=== PATIENT | female | born 1965 | race Two or more races ===

== ENCOUNTER 2025-03-08 17:04 | Inpatient (IN) | payer MEDICAID, OTHER ==
[~2025-03-08] VITALS: Ht 160 cm; Wt 62.8 kg
--- NOTE | 2025-03-08 17:30 | ED.PDOC ---
History of Present Illness HPI Comments This is a 59 years old female without any significant past medical history presented to the ED with a chief complaint of epigastric pain, nausea and constipation since 5 days prior to this admission. The patient states that epigastric pain, which is sharp colicky pain, 8/10, without any aggravating and relieving factors and associated with nausea and constipation. The patient 1st went to the [facility] for epigastric pain, did workup for abdominal pain and discharged with antibiotic for possible stomach infection. The patient mentioned that her pain never goes away getting worse that prompted this visit. She denies fever, chills, shortness of breath, vomiting, diarrhea, dysuria, hematuria or any blood in the stool. Chief Complaint: Abdominal Pain Time Seen by MD: 17:07 Allergies: Coded Allergies: Morphine (Verified Allergy, Unknown, 03/08/25) Information Source: Patient Mode of Arrival: Ambulatory Timing: Days Duration: Since onset Prehospital treatment: None Past Medical History PAST MEDICAL HISTORY: Denies Surgical History: Denies all surgeries COMPONENT LAB TECH History: Denies all COMPONENT LAB TECH Hx Family History Family History: Reviewed,noncontributory to illness Social History Smoker: Non-Smoker Alcohol: Denies ETOH Use Drugs: Denies Drug Use Lives In: Home Constitutional: reports: chills; denies: diaphoresis, fatigue, fever, malaise, sweats, weakness, others EENTM: denies: blurred vision, double vision, ear bleeding, ear discharge, ear drainage, ear pain, ear ringing, eye pain, eye redness, hearing loss, mouth pain, mouth swelling, nasal discharge, nose bleeding, nose congestion, nose pain, photophobia, tearing, throat pain, throat swelling, voice changes, others Respiratory: denies: cough, hemoptysis, orthopnea, SOB at rest, shortness of breath, SOB with excertion, stridor, wheezing, others Cardiovascular: denies: chest pain, dizzy spells, diaphoresis, Dyspnea on exertion, edema, irregular heart beat, left arm pain, lightheadedness, palpitations, PND, syncope, others Gastrointestinal: reports: abdominal pain, constipated, nausea; denies: abdomen distended, blood streaked bowels, diarrhea, dysphagia, difficulty swallowing, hematemesis, melena, poor appetite, poor fluid intake, rectal bleeding, rectal pain, vomiting, others Genitourinary: denies: abnormal vagina bleeding, burning, dyspareunia, dysuria, flank pain, frequency, hematuria, incontinence, pain, , vagina discharge, urgency, others Neurological: denies: dizziness, fainting, headache, left sided numbness, left sided weakness, numbness, paresthesia, pre-existing deficit, right sided numbness, right sided weakness, seizure, speech problems, tingling, tremors, weakness, others Musculoskeletal: denies: back pain, gout, joint pain, joint swelling, muscle pain, muscle stiffness, neck pain, others Integumetry: denies: bruises, change in color, change in hair/nails, dryness, laceration, lesions, lumps, rash, wounds, others Allergic/Immunocompromised: denies: Difficulty Healing, Frequent Infections, Hives, Itching, others Hematologic/Lymphatic: denies: anemia, blood clots, easy bleeding, easy bruising, swollen glands, others Endocrine: denies: excessive hunger, excessive sweating, excessive thirst, excessive urination, flushing, intolerance to cold, intolerance to heat, unexplained weight gain, unexplained weight loss, others Psychiatric: denies: anxiety, bipolar disorder, depression, hopeless, panic disorder, schizophrenia, sleepless, suicidal, others Physical Exam General Appearance: Mild Distress HEENT: Normal ENT Inspection, Pharynx Normal, TMs Normal Neck: Full Range of Motion, Non-Tender, Normal, Normal Inspection Respiratory: Chest Non-Tender, Lungs Clear, No Accessory Muscle Use, No Respiratory Distress, Normal Breath Sounds Cardiovascular: No Edema, No JVD, No Murmur, No Gallop, Normal Peripheral Pulses, Regular Rate/Rhythm Breast Exam: Deferred Gastrointestinal: Epigastric, No Organomegaly, No Pulsatile Mass, Normal Bowel Sounds, Tenderness Genitalia: Deferred Pelvic: Deferred Rectal: Deferred Extremities: No calf tenderness, Normal capillary refill, Normal inspection, Normal range of motion, Non-tender, No pedal edema Neurologic: buncher operator II-XII nml as Tested, No Motor Deficits, No Sensory Deficits Cerebellar Function: NOT DONE Reflexes: NOT DONE Skin: NOT DONE Peripheral Pulses: 2+ carotid (R), 2+ carotid (L), 2+ femoral (R), 2+ femoral (L), 2+ dorsalis pedis (R), 2+ dorsalis pedis (L), 2+ Radial (R), 2+ Radial (L), 2+ Brachial (R), 2+ Brachial (L) Lymphatic: NOT DONE Was a procedure done? Was a procedure done?: No Differential Dx Considerations may include: Acute cholecystitis, cholelithiasis, biliary colic, pancreatitis, gastritis, PUD, constipation, colitis, diverticulitis, enteritis X-Ray, Labs, Meds, VS Vital Signs Date Time Temp Pulse Resp B/P (MAP) Pulse Ox O2 Delivery O2 Flow Rate FiO2 03/08/25 17:06 98.0 88 16 152/80 97 98.0 Lab Test 03/08/25 18:02 Range/Units White Blood Count 8.7 4.4-10.8 10^3/uL Red Blood Count 5.08 4.0-5.20 10^6/uL Hemoglobin 14.5 12.2-16.2 g/dL Hematocrit 44.2 36.0-46.0 % Mean Corpuscular Volume 87.0 80.0-100.0 fL Mean Corpuscular Hemoglobin 28.5 28.0-32.0 pg Mean Corpuscular Hemoglobin Concent 32.7 32.0-36.0 g/dL Red Cell Distribution Width 13.4 11.8-14.3 % Platelet Count 332 140-450 10^3/uL Mean Platelet Volume 8.0 6.9-10.8 fL Neutrophils (%) (Auto) 75.0 37.0-80.0 % Lymphocytes (%) (Auto) 19.4 10.0-50.0 % Monocytes (%) (Auto) 4.9 0.0-12.0 % Eosinophils (%) (Auto) 0.4 0.0-7.0 % Basophils (%) (Auto) 0.3 0.0-2.0 % Neutrophils # (Auto) 6.5 1.6-8.6 10 ^3/uL Lymphocytes # (Auto) 1.7 0.4-5.4 10 ^3/uL Monocytes # (Auto) 0.4 0-1.3 10 ^3/uL Eosinophils # (Auto) 0 0-0.8 10 ^3/uL Basophils # (Auto) 0 0-0.2 10 ^3/uL Nucleated Red Blood Cells 0.1 % Sodium Level 143 136-145 mmol/L Potassium Level 3.5 3.5-5.1 mmol/L Chloride Level 108 H 98-107 mmol/L Carbon Dioxide Level 24 20-31 mmol/L Anion Gap 11 5-15 Blood Urea Nitrogen 8 L 9-23 mg/dL Creatinine 0.92 0.550-1.02 mg/dL Glomerular Filtration Rate Calc 72 >90 mL/min BUN/Creatinine Ratio 8.7 L 10.0-20.0 Serum Glucose 130 H 74-106 mg/dL Calcium Level 9.6 8.7-10.4 mg/dL Total Bilirubin 1.7 H 0.2-1.0 mg/dL Aspartate Amino Transferase (AST) 139 H 13-40 U/L Alanine Aminotransferase (ALT) 129 H 7-40 U/L Alkaline Phosphatase 218 H 46-116 U/L Total Protein 8.2 5.7-8.2 g/dL Albumin 5.0 H 3.2-4.8 g/dL Lipase 76 H 12-53 U/L X-Ray, Labs, Meds, VS Comment ORDERING PHYSICIAN: CHAUNCEY KAUR RESIDENT PROCEDURE(s): ABDL - ABDOMEN LIMITED REASON: Epigastric pain ORDER NUMBER(s): [id number], ACCESSION NUMBER(s): [id number] CLINICAL HISTORY: Epigastric pain TECHNIQUE: Transabdominal sonogram was performed of the right upper quadrant. COMPARISON: None FINDINGS: The liver is increased in echogenicity. There is no focal parenchymal abnormality. No intrahepatic biliary ductal dilatation is present. The liver measures 17.1 cm. The gallbladder contains trace sludge with no evidence for stones or wall thickening. The common bile duct is normal in caliber, measuring 5.8 mm. The visualized pancreas is grossly unremarkable. The right kidney is normal in echogenicity and measures 10.3 cm in length. There is no evidence for hydronephrosis or calculi. IMPRESSION: DIFFUSE HEPATIC STEATOSIS ORDERING PHYSICIAN: CHAUNCEY KAUR PROCEDURE(s): ABPL - CT AB PEL WO CON-NO ORAL OR IV REASON: Epigastric pain ORDER NUMBER(s): [id number], ACCESSION NUMBER(s): [id number] Exam: CT CT AB PEL WO CON-NO ORAL OR IV History: Epigastric pain Comparison Study: None TECHNIQUE: Multidetector CT of the abdomen was performed from lung bases to pubic symphysis. Imaging was performed without IV contrast. Axial, coronal and sagittal multiplanar reformats were obtained from the axial data set by the technologist. Radiation Dose Information: CT Dose: CTDI volume is 6.76 mGy. Dose-length product is 347.03 mGy*cm FINDINGS: Evaluation of solid organs is limited due to lack of intravenous contrast use. Findings: Lung Bases: No acute or significant lung base finding. Normal heart size. No pleural or pericardial effusion. Liver: The liver is normal in size. No focal lesions. Gallbladder and Biliary Tree: Unremarkable Spleen: Unremarkable Pancreas: The pancreas is grossly normal in appearance. Adrenal Glands: Unremarkable Kidneys: Kidneys are grossly normal without calculi or hydronephrosis. Bladder: Grossly unremarkable for degree of distention. Bowel: The stomach is grossly normal in appearance. Small bowel and colon are normal in caliber and distribution. The appendix is not visualized; however, no secondary findings of acute appendicitis identified. Ascites: Absent Lymphadenopathy: No mesenteric, retroperitoneal or periportal lymphadenopathy. Abdominal Wall and Mesentery: 2.2 cm fat containing umbilical hernia. Vasculature: The visualized abdominal aorta is normal in size and caliber. Evaluation of abdominal and pelvic vessels is limited due to lack of intravenous contrast. Pelvic Organs: Unremarkable Musculoskeletal: No aggressive focal bony lesions, acute fractures or di slocation. Soft tissues: Unremarkable IMPRESSION: 1. No calcified gallstones 2. No free air or free fluid. 3. No CT findings to suggest bowel obstruction. Moderate degree of stool burden throughout the colon. 4. 2.2 cm fat containing umbilical hernia. 5. No nephrolithiasis or hydronephrosis Images Reviewed?: Images reviewed and evaluated by me Time of 1ST Reevaluation: 20:03 Reevaluation 1ST: Unchanged Patient Education/Counseling: Diagnosis, Treatment Family Education/Counseling: Diagnosis, Treatment Comments This is a 59-year-old female presented to the ED with a chief complaint of severe epigastric pain, nausea, and constipation for last 1 week prior to this visit. Initial physical exam showed epigastric tenderness CBC was unremarkable CMP demonstrated elevated lipase, bilirubin and liver enzymes Right upper quadrant ultrasound was negative for gallstone and showed diffuse hepatic steatosis CT abdomen pelvis without IV contrast was negative for acute intra-abdominal pathology The patient will be admitted for further evaluation and management of possible pancreatitis and transaminitis. SEPSIS Sepsis Screen Date sepsis recognized/suspect: Mar 08, 2025 Time Sepsis recognized/suspect: 1705 Recent Procedure: No On Antibiotic Therapy: No Respiratory Rate >20: No Heart Rate >90: No Temp<36 C (96.8 F) or >38.3 C: No SBP <90 or MAP <65 mmHG: No New Acute Mental Status Change: No Is the patient on CPAP, BIPAP,: No Physician Orders Urinalysis (03/08/25 17:28) Ct Ab Pel Wo Con-No Oral Or Iv (03/08/25 17:28) Abdomen Limited (03/08/25 19:04) Vital Signs Date Time Temp Pulse Resp B/P (MAP) Pulse Ox O2 Delivery O2 Flow Rate FiO2 03/08/25 17:06 98.0 88 16 152/80 97 98.0 Laboratory Tests Test 03/08/25 18:02 White Blood Count 8.7 10^3/uL (4.4-10.8) Departure 1 Departure Time of Disposition: 20:06 Impression: Primary Impression: Acute pancreatitis Additional Impression: Transaminitis Disposition: ADMITTED INPATIENT Admit to: Med Surg Condition: Guarded Critical Care Note Critical Care Time?: No Stability Stability form required: CHAUNCEY Ha RESIDENT Mar 08, 2025 17:30
--- NOTE | 2025-03-08 18:16 | DVH ---
Exam: CT CT AB PEL WO CON-NO ORAL OR IV History: Epigastric pain Comparison Study: None TECHNIQUE: Multidetector CT of the abdomen was performed from lung bases to pubic symphysis. Imaging was performed without IV contrast. Axial, coronal and sagittal multiplanar reformats were obtained fr om the axial data set by the technologist. Radiation Dose Information: CT Dose: CTDI volume is 6.76 mGy. Dose-length product is 347.03 mGy*cm FINDINGS: Evaluation of solid organs is limited due to lack of intravenous contrast use. Findings: Lung Bases: No acute or significant lung base finding. Normal heart size. No pleural or pericardial effusion. Liver: The liver is normal in size. No focal lesions. Gallbladder and Biliary Tree: Unremarkable Spleen: Unremarkable Pancreas: The pancreas is grossly normal in appearance. Adrenal Glands: Unremarkable Kidneys: Kidneys are grossly normal without calculi or hydronephrosis. Bladder: Grossly unremarkable for degree of distention. Bowel: The stomach is grossly normal in appearance. Small bowel and colon are normal in caliber and d istribution. The appendix is not visualized; however, no secondary findings of acute appendicitis id entified. Ascites: Absent Lymphadenopathy: No mesenteric, retroperitoneal or periportal lymphadenopathy. Abdominal Wall and Mesentery: 2.2 cm fat containing umbilical hernia. Vasculature: The visualized abdominal aorta is normal in size and caliber. Evaluation of abdominal a nd pelvic vessels is limited due to lack of intravenous contrast. Pelvic Organs: Unremarkable Musculoskeletal: No aggressive focal bony lesions, acute fractures or dislocation. Soft tissues: Unremarkable IMPRESSION: 1. No calcified gallstones 2. No free air or free fluid. 3. No CT findings to suggest bowel obstruction. Moderate degree of stool burden throughout the colon. 4. 2.2 cm fat containing umbilical hernia. 5. No nephrolithiasis or hydronephrosis 6. Radiation optimization: All CT scans at this facility use at least one of these dose optimization techniques: automated exposure control mA and/or kV adjustment per patient size (includes targeted e xams where dose is matched to clinical indication) or iterative reconstruction.
[2025-03-08 18:17] LABS: Hematocrit 44.2 % (36.0-46.0); Hemoglobin 14.5 g/dL (12.2-16.2); Mean Corpuscular Hemoglobin 28.5 pg (28.0-32.0); Mean Corpuscular Volume 87.0 fL (80.0-100.0); Nucleated Red Blood Cells % 0.1 %
[2025-03-08 18:29] LABS: Anion Gap 11 (5-15); BUN/Creatinine Ratio 8.7 (10.0-20.0); Calcium 9.6 mg/dL (8.7-10.4); Carbon Dioxide 24 mmol/L (20-31); Sodium 143 mmol/L (136-145); Total Protein 8.2 g/dL (5.7-8.2)
[2025-03-08 18:57] LABS: Alanine Aminotransferase 129 U/L (7-40); Albumin 5.0 g/dL (3.2-4.8); Alkaline Phosphatase 218 U/L (46-116); Bilirubin, Total 1.7 mg/dL (0.2-1.0); Blood Urea Nitrogen 8 mg/dL (9-23); Chloride 108 mmol/L (98-107); Glucose 130 mg/dL (74-106); Lipase 76 U/L (12-53); Potassium 3.5 mmol/L (3.5-5.1)
--- NOTE | 2025-03-08 19:47 | DVH ---
CLINICAL HISTORY: Epigastric pain TECHNIQUE: Transabdominal sonogram was performed of the right upper quadrant. COMPARISON: None FINDINGS: The liver is increased in echogenicity. There is no focal parenchymal abnormality. No intrahepatic b iliary ductal dilatation is present. The liver measures 17.1 cm. The gallbladder contains trace sludge with no evidence for stones or wall thickening. The common bile duct is normal in caliber, measuring 5.8 mm. The visualized pancreas is grossly unremarkable. The right kidney is normal in echogenicity and measures 10.3 cm in length. There is no evidence for h ydronephrosis or calculi. IMPRESSION: DIFFUSE HEPATIC STEATOSIS
[2025-03-08] MEDS ORDERED: LACTATED RINGER'S 1,000 ML IV ONE (20:15)
[2025-03-08] MEDS: KETOROLAC TROMETH 30 MG/ML 1ML VIAL IV ONE (22:38)
[2025-03-08] MEDS: SODIUM CHLORIDE 0.9% 1,000 ML IV ONE (22:38)
[2025-03-08 23:01] LABS: Urine Protein, UAD Negative (Negative)
[2025-03-09] MEDS ORDERED: KETOROLAC TROMETH 30 MG/ML 1ML VIAL IV PRN (01:30)
--- NOTE | 2025-03-09 01:59 | DVHHP2 ---
History of Present Illness History of Present Illness This is a 59-year-old female with no significant past medical history except depression who presents to the Emergency Department with a 5-day history of epigastric pain, nausea, and constipation. Patient also stated for episode of vomiting, not mixed with blood. The patient describes the pain as sharp and colicky, rated 8/10 in intensity, without identifiable aggravating or relieving factors. Associated symptoms include persistent nausea and constipation. Patient having similar episode before. She visited at [facility], where she underwent an abdominal workup and was discharged with antibiotics for a presumed stomach infection. However, her symptoms have progressively worsened, prompting this ED visit. Not taking any [id number] drug like Tylenol, any herbal product. She denies fever, chills, shortness of breath, vomiting, diarrhea, dysuria, hematuria, or hematochezia. PAST MEDICAL HISTORY: Depression Surgical History: Denies all surgeries Family History: noncontributory to illness Smoker: Non-Smoker Alcohol: Denies ETOH Use Drugs: Denies Drug Use Lives In: Home PCP: Not selected Allergy: Morphine Review of Systems Constitutional: Yes: Malaise; No: Fever, Chills, Sweats, Weakness, Other Eyes: No: Pain, Vision change, Conjunctivae inflammation, Eyelid inflammation, Other, Redness ENT: No: Ear pain, Ear discharge, Nose pain, Nose discharge, Nose congestion, Mouth pain, Mouth swelling, Throat pain, Throat swelling, Other Respiratory: No: Cough, Dry, Shortness of breath, SOB with excertion, Wheezing, Hemoptysis, Pleuritic Pain, Sputum, Wheezing, Other Cardiovascular: No: Chest Pain, Palpitations, Orthopnea, Paroxysmal Noc. Dyspnea, Edema, Lt Headedness, Other Gastrointestinal: Nausea, Vomiting, Abdominal Pain, Constipation; No: Diarrhea, Melena, Hematochezia, Other Genitourinary: No Dysuria, No Frequency, No Incontinence, No Hematuria, No Rete ntion, No Other Musculoskeletal: No: other, neck pain, shoulder pain, arm pain, back pain, hand pain, leg pain, foot pain Skin: No: Rash, Lesions, Jaundice, Bruising, Other Neurological: No: Weakness, Numbness, Incoordination, Change in speech, Confusion, Seizures, Other Allergies: Coded Allergies: Morphine (Verified Allergy, Unknown, 03/08/25) Medications Current Medications Medications Dose Ordered Sig/Justus Route Start Time Stop Time Status Last Admin Dose Admin Sodium Chloride 1,000 ml @ 120 mls/hr Q8H20M IV 03/09/25 01:30 Ketorolac Tromethamine 15 mg Q6HPRN PRN IV 03/09/25 01:30 03/14/25 01:29 Exam Vital Signs Vital Signs Date Time Temp Pulse Resp B/P (MAP) Pulse Ox O2 Delivery O2 Flow Rate FiO2 03/08/25 22:40 98.7 111 17 125/72 (89) 93 98.7 General Appearance: Alert, Oriented X3, Cooperative, mild distress HEENT: Atraumatic, PERRLA, EOMI Respiratory: Clear to auscultation, Normal air movement Cardiovascular: Regular rate, Normal S1, Normal S2 Abdominal: Normal bowel sounds, Soft, Other (Tender on deep palpation epigastric region) Extremities: No clubbing, No cyanosis, No edema Skin: No rashes, No breakdown Neuro: Normal gait, Normal speech, Strength at 5/5 X4 ext, Normal tone Labs/Xrays Labs Test 03/08/25 21:46 03/08/25 18:02 Range/Units Urine Color Yellow Yellow Urine Clarity Clear Clear Urine pH 7.5 5.0-9.0 Urine Specific Alva 1.019 1.001-1.035 Urine Protein Negative Negative Urine Ketones Negative Negative Urine Blood Negative Negative /uL Urine Nitrite Negative Negative Urine Bilirubin 1+ H Negative Urine Urobilinogen Over Negative mg/dL Urine Leukocyte Esterase Negative Negative /uL Urine RBC None seen 0 - 4 /hpf Urine Microscopic WBC 1 0-5 /HPF Urine Squamous Epithelial Cells Few <5 /hpf Urine Bacteria None seen None Seen /hpf Urine Mucus Few None Seen Urine Glucose Normal Normal mg/dL White Blood Count 8.7 4.4-10.8 10^3/uL Red Blood Count 5.08 4.0-5.20 10^6/uL Hemoglobin 14.5 12.2-16.2 g/dL Hematocrit 44.2 36.0-46.0 % Mean Corpuscular Volume 87.0 80.0-100.0 fL Mean Corpuscular Hemoglobin 28.5 28.0-32.0 pg Mean Corpuscular Hemoglobin Concent 32.7 32.0-36.0 g/dL Red Cell Distribution Width 13.4 11.8-14.3 % Platelet Count 332 140-450 10^3/uL Mean Platelet Volume 8.0 6.9-10.8 fL Neutrophils (%) (Auto) 75.0 37.0-80.0 % Lymphocytes (%) (Auto) 19.4 10.0-50.0 % Monocytes (%) (Auto) 4.9 0.0-12.0 % Eosinophils (%) (Auto) 0.4 0.0-7.0 % Basophils (%) (Auto) 0.3 0.0-2.0 % Neutrophils # (Auto) 6.5 1.6-8.6 10 ^3/uL Lymphocytes # (Auto) 1.7 0.4-5.4 10 ^3/uL Monocytes # (Auto) 0.4 0-1.3 10 ^3/uL Eosinophils # (Auto) 0 0-0.8 10 ^3/uL Basophils # (Auto) 0 0-0.2 10 ^3/uL Nucleated Red Blood Cells 0.1 % Sodium Level 143 136-145 mmol/L Potassium Level 3.5 3.5-5.1 mmol/L Chloride Level 108 H 98-107 mmol/L Carbon Dioxide Level 24 20-31 mmol/L Anion Gap 11 5-15 Blood Urea Nitrogen 8 L 9-23 mg/dL Creatinine 0.92 0.550-1.02 mg/dL Glomerular Filtration Rate Calc 72 >90 mL/min BUN/Creatinine Ratio 8.7 L 10.0-20.0 Serum Glucose 130 H 74-106 mg/dL Calcium Level 9.6 8.7-10.4 mg/dL Total Bilirubin 1.7 H 0.2-1.0 mg/dL Aspartate Amino Transferase (AST) 139 H 13-40 U/L Alanine Aminotransferase (ALT) 129 H 7-40 U/L Alkaline Phosphatase 218 H 46-116 U/L Total Protein 8.2 5.7-8.2 g/dL Albumin 5.0 H 3.2-4.8 g/dL Lipase 76 H 12-53 U/L SEPSIS Sepsis Screen Date sepsis recognized/suspect: Mar 08, 2025 Time Sepsis recognized/suspect: 2239 Recent Procedure: No On Antibiotic Therapy: No Respiratory Rate >20: No Heart Rate >90: No Temp<36 C (96.8 F) or >38.3 C: No SBP <90 or MAP <65 mmHG: No New Acute Mental Status Change: No Is the patient on CPAP, BIPAP,: No Physician Orders Abdomen Limited (03/08/25 19:04) Npo (Nothing By Mouth) Diet (03/09/25 Breakfast) Admit (03/09/25 01:16) Code Status (03/09/25 01:16) Sodium Chloride 0.9% (03/09/25 01:30) Notify Md Of Changes From Base (03/09/25 01:16) Ketorolac Injection (Toradol Injection) (03/09/25 01:30) Basic Metabolic Panel (03/09/25 04:00) Drug Screen (03/09/25 04:00) Hemoglobin A1c (03/09/25 04:00) Thyroid Stimulating Hormone (03/09/25 04:00) Lipid Panel (03/09/25 04:00) Acute Hepatitis Panel (03/09/25 04:00) Vital Signs Date Time Temp Pulse Resp B/P (MAP) Pulse Ox O2 Delivery O2 Flow Rate FiO2 03/08/25 22:40 98.7 111 17 125/72 (89) 93 98.7 Laboratory Tests Test 03/08/25 18:02 White Blood Count 8.7 10^3/uL (4.4-10.8) Medications Medications Dose Ordered Sig/Justus Route Start Time Stop Time Status Last Admin Dose Admin Ketorolac Tromethamine 15 mg ONCE ONCE IV 03/08/25 20:15 03/08/25 20:16 DC 03/08/25 22:38 15 MG Sodium Chloride 1,000 ml @ 1,000 mls/hr Q1H ONCE IV 03/08/25 22:45 03/08/25 23:44 DC 03/08/25 22:38 1,000 MLS/HR Assessment/Plan Assessment/Plan Intractable abdominal pain due to acute pancreatitis Patient came with abdominal pain, nausea, vomiting Ultrasound abdomen:The liver is increased in echogenicity. No intrahepatic biliary ductal dilatation is present. The liver measures 17.1 cm. The gallbladder contains trace sludge with no evidence for stones or wall thickening. The common bile duct is normal in caliber, measuring 5.[address] scan abdomen without contrast: No calcified gallstones No free air or free fluid. No CT findings to suggest bowel obstruction. 2.2 cm fat containing umbilical hernia. Serum lipase level 76 Ondansetron 4 mg IV q.6 p.r.n. NSS 120 cc/hours Ketorolac 15 mg IV q.6 p.r.n. Transaminitis TOTAL BILIRUBIN 1.7, AST 139, ALT 129, ALP 218 Avoid hepatotoxic drugs Follow hepatitis control panel operator crude unit liver function Depression Home medication sertraline 50 mg p.o. daily Seen private psychiatrist and last visit 8 months back Hepatic steatosis Ultrasound abdomen shows hepatic steatosis Lifestyle modification Lipid profile NPO GI prophylaxis: Pantoprazole 40 mg iv daily DVT prophylaxis: Patient ambulating Use car spotter ID number#[id number]. Goals of care discussions, more than 27 minute spent with patient. Full code status Case discharge with Dr. Brown Plan discussed with: Patient, Other (Nurse) My Orders Orders - KATHERIN MCCARTHY Procedure Category Date Status Time Admit ADMIT 03/09/25 Transmitted 01:16 Code Status CODE 03/09/25 Transmitted 01:16 Sodium Chloride 0.9% PHA 03/09/25 In Process 01:30 Notify Of Changes JOHNNIE 03/09/25 In Process From Base 01:16 Ketorolac Injection PHA 03/09/25 In Process (Toradol Injection) 01:30 Basic Metabolic Panel LAB 03/09/25 Logged 04:00 Drug Screen LAB 03/09/25 Logged 04:00 Hemoglobin A1c LAB 03/09/25 Logged 04:00 Thyroid Stimulating LAB 03/09/25 Logged Hormone 04:00 Lipid Panel LAB 03/09/25 Logged 04:00 Acute Hepatitis Panel LAB 03/09/25 Transmitted 04:00 Date of Service: Mar 09, 2025 Billing Provider: TYSON BROWN MD Common Visit Codes: 33648-[id number] INP/OBS CARE (HIGH) Secondary Visit Codes: [id number] CARE PLAN 30 MINUTES KATHERIN MCCARTHY Mar 09, 2025 01:59
[2025-03-09] MEDS: SODIUM CHLORIDE 0.9% 1,000 ML IV SCH (04:00)
[2025-03-09] MEDS ORDERED: ONDANSETRON HCL 4 MG/2 ML VIAL IV PRN (06:15)
[2025-03-09 07:00] LABS: Calcium 9.4 mg/dL (8.7-10.4); Potassium 3.5 mmol/L (3.5-5.1); Sodium 143 mmol/L (136-145)
[2025-03-09 07:01] LABS: Anion Gap 13 (5-15); Carbon Dioxide 22 mmol/L (20-31)
[2025-03-09 07:02] LABS: Chloride 108 mmol/L (98-107)
[2025-03-09 07:06] LABS: BUN/Creatinine Ratio 11.9 (10.0-20.0); Blood Urea Nitrogen 10 mg/dL (9-23); Triglycerides 105 mg/dL (< 150)
[2025-03-09 07:08] LABS: Cholesterol 168 mg/dL (< 200)
[2025-03-09 07:12] LABS: Glucose 135 mg/dL (74-106); HDL Cholesterol 39 mg/dL (40-59)
[2025-03-09 07:30] VITALS: PULSE 100; RESP 18; O2SAT 94
[2025-03-09 08:29] LABS: Benzodiazephine Screen, Urine Neg (NEGATIVE)
[2025-03-09 08:36] LABS: Amphetamine Screen, Urine Neg (NEGATIVE); Barbiturate Scree,Urine Neg (NEGATIVE); Cannabinoid Screen, Urine Neg (NEGATIVE); Cocaine Screen, Urine Neg (NEGATIVE); Opiate Scree,Urine Neg (NEGATIVE); Phencyclidine Screen, Urine Neg (NEGATIVE)
[2025-03-09] MEDS: PANTOPRAZOLE 40 MG/10 ML VIAL INJ IV SCH (10:08)
[2025-03-09 11:28] LABS: Hepatitis B Surface Antigen Negative (Negative); Hepatitis C Antibody Negative (Negative)
[2025-03-09] MEDS: POLYETHYLENE GLYCOL 17 GM PWDR PO ONE (11:41)
--- NOTE | 2025-03-09 14:29 | DVH ---
CHEST RADIOGRAPH Indication: Tachypnea and tachycardia Technique: Single frontal view of the chest was obtained Comparison: None FINDINGS: Lines and Tubes: None Lungs: No focal consolidation. Pleura: No effusion. No pneumothorax. Cardiomediastinal contours: Unremarkable Bones: No acute osseous abnormality. IMPRESSION: No acute cardiopulmonary disease.
[2025-03-09 15:19] LABS: Total Protein 7.4 g/dL (5.7-8.2)
[2025-03-09 15:32] LABS: Alanine Aminotransferase 249.0 U/L (7-40); Albumin 4.9 g/dL (3.2-4.8); Alkaline Phosphatase 211.0 U/L (46-116); Bilirubin, Direct 2.4 mg/dL (<0.3); Bilirubin, Total 4.0 mg/dL (0.2-1.0)
[2025-03-09 15:44] LABS: Lipase 42.0 U/L (12-53)
[2025-03-09] MEDS: PIPERACILLIN-TAZOB 3.375GM 100 ML IV ONE (17:32)
--- NOTE | 2025-03-09 19:13 | DVHPNRES ---
Progress Note Date Seen: Mar 09, 2025 Resident Creating Document: HAY FINLEY RESIDENT Medical Necessity Reason Pt with a Central, PICC or Fol: No Subjective Review of Systems Patient is a 59-year-old female with prior medical history of anxiety, who presented to the ED with chief complaint of abdominal pain. The patient states that sudden onset of epigastric pain, described as sharp, 10/10 in intensity, radiating towards her back, associated with vomiting, nausea, and chills. She denied fever, diarrhea, bloody vomitus, diaphoresis, chest pain, recent sick contacts, and palpitations. due to persistence of symptoms she sought medical attention. The patient states that she has had issues with abdominal pain for the last year, and was recently seen at [facility] where she was told there was nothing wrong. On evaluation in the ED, patient was in mild distress and hypertensive. Initial labs unremarkable CBC, chemical panel significant liver function tests, Lipase 73 , UA is unremarkable, hepatitis panel is negative, and UDS is negative. Abdominal CT shows noncalcified gallstones, no free air or free fluid, no findings suggestive of a bowel obstruction, moderate degree of stool burden throughout the colon, 2.2 cm fat containing umbilical hernia, no nephrolithiasis or hydronephrosis. Upper quadrant ultrasound is significant for gallbladder with trace sludge with no evidence for stones or wall thickening and diffuse hepatic steatosis. The patient was admitted for further workup and monitoring. Personal history: Anxiety Allergies: Morphine Surgical history: Denies Social: Denies drug, tobacco, and alcohol use. States she currently lives with her sister and feels safe. Patient seen at bedside. She is AOx4, states that she feels better, abdominal pain has resolved, her appetite has returned, and continues to refer constipation. Currently denies nausea, vomiting, diarrhea, palpitations, dysuria, hematuria, chest pain, and symptoms. No adverse events overnight. Patient has been mildly tachycardic and tachypneic. Troponins were ordered which were negative. BNP is unremarkable. Chest x-ray shows no acute cardiopulmonary disease. Follow up labs are significant for increasing transaminitis. An MRCP has been ordered and a GI consult has been placed. Additionally, the patient has been started on IV Zosyn. Review of Systems: Constitutional: Denies weight loss, fever and chills. HEENT: Denies changes in vision and hearing. Respiratory: Denies shortness of breath and cough Cardiovascular: Denies chest discomfort or palpitations GI: Mild abdominal pain and constipation, Denies abdominal distention, diarrhea : Denies dysuria and urinary frequency. Musculoskeletal: Refers localized back pain Skin: Denies rash and pruritus. Neurological: denies dizziness headache vision or hearing problems Objective vital signs Vital Sign Date Time Temp Pulse Resp B/P (MAP) Pulse Ox O2 Delivery O2 Flow Rate FiO2 03/09/25 19:00 79 25 101/45 (63) 97 03/09/25 07:30 Room Air* 0 21 03/09/25 07:30 99.2 99.2 Total Intake and Output 03/08/25 03/08/25 03/09/25 15:00 23:00 07:00 Intake Total 120 ml Balance 120 ml medications Current Medications Medications Dose Ordered Sig/Justus Route Start Time Stop Time Status Last Admin Dose Admin Sodium Chloride 1,000 ml @ 120 mls/hr Q8H20M IV 03/09/25 01:30 03/09/25 12:44 120 MLS/HR Ketorolac Tromethamine 15 mg Q6HPRN PRN IV 03/09/25 01:30 03/14/25 01:29 Pantoprazole Sodium 40 mg DAILY IV 03/09/25 10:00 03/09/25 10:08 40 MG Ondansetron HCl 4 mg Q6HPRN PRN IV 03/09/25 06:15 Piperacillin Sod/ Tazobactam Sod 100 ml @ 25 mls/hr Q8H IV 03/10/25 00:00 Examination General: The patient alert and oriented in person place and time. Patient following commands HEENT: Normocephalic, atraumatic, normal reactive pupils, anicteric, pink conjunctiva, pink moist mucous membrane Respiratory/pulmonary: Clear lungs bilaterally, vesicular murmurs present in almost all lung hills, no associated crackles or wheezes. Abdomen: Abdomen nondistended, normal bowel sounds, soft, there is no pain to palpation in any of the abdominal quadrants, Yepez negative, no palpable masses. Cardiovascular: Normal RRR, Normal S1 and S2 Extremities: no deformities, there is no peripheral edema present at the lower extremities, pulses are palpable Skin: No rashes or pruritus, there is no sacral edema present at this time. Neurological: Intact cranial nerves with no focal neurologic deficits laboratory and microbiology Laboratory Tests 03/09/25 06:24 03/08/25 18:02 Test 03/09/25 06:24 Range/Units Serum Glucose 135 H 74-106 mg/dL Problem List/Assessment/Plan Problem List/Assessment/Plan Assessment and Plan: Intractable abdominal pain, possibly due Biliary colic? - ketorolac 15 mg IV q.6 hours PRN Rule out possible choledocholithiasis -MRCP pending -GI consult pending -Zosyn IV q.8 hours Transaminitis, likely due to above Dehydration - LR 1000 cc once - NS 120 cc/hr Pancreatitis, ruled out Hepatic Steatosis - right upper quadrant ultrasound: Hepatic steatosis Constipation - MiraLAX 17 g p.o. once Anxiety Umbilical hernia - abdominal CT: 2.2 cm fat containing umbilical hernia Diet: clear liquid DVT prophylaxis: Not indicated, lilibeth 0 GI prophylaxis: Not indicated Case discussed with Dr. Jeffries Goals of care discussed with patient for 20 minutes. Plan discussed with: Patient My Orders My Orders Orders - HAY FINLEY Procedure Category Date Status Time Chest Xray 1 View XY 03/09/25 Resulted 13:48 Clear Liq Diet DIET 03/09/25 Transmitted Dinner Electrocardigram EKG 03/09/25 Logged 13:53 Mrcp Mri MRI 03/09/25 Logged 16:04 Lipid Panel LAB 03/10/25 Verified 04:00 * Gi D[facility] News Director CONS 03/09/25 Transmitted 16:04 Piperacillin-Tazob PHA 03/10/25 In Process 3.375gm (Zosyn 3.375g 00:00 Complete Blood Count LAB 03/10/25 Verified 04:00 Comprehensive LAB 03/10/25 Verified Metabolic Panel 04:00 Date of Service: Mar 09, 2025 Billing Provider: BRUCE JEFFRIES MD Common Visit Codes: [id number] INP/OBS CARE(HIGH) Secondary Visit Codes: [id number] CARE PLAN 30 MINUTES HAY FINLEY Mar 09, 2025 19:13 BRUCE JEFFRIES MD Mar 11, 2025 21:02
[2025-03-09 22:50] VITALS: BP 118/73; PULSE 77; RESP 15; TEMP 97.4; O2SAT 96
[2025-03-09] MEDS: PIPERACILLIN-TAZOB 3.375GM 100 ML IV SCH (23:07)
[2025-03-09] MEDS ORDERED: SERT-206 PO (23:18)
[2025-03-10] VITALS (8 sets, daily range): BP systolic 112–129; BP diastolic 46–77; PULSE 66–75; RESP 14–19; TEMP 97–98.6; O2SAT 95–98
[2025-03-10 07:14] LABS: Hematocrit 36.4 % (36.0-46.0); Hemoglobin 12.1 g/dL (12.2-16.2); Mean Corpuscular Hemoglobin 28.6 pg (28.0-32.0); Mean Corpuscular Volume 86.5 fL (80.0-100.0); Nucleated Red Blood Cells % 0.0 %
[2025-03-10 07:35] LABS: Alanine Aminotransferase 147 U/L (7-40); Albumin 4.1 g/dL (3.2-4.8); Alkaline Phosphatase 168 U/L (46-116); Anion Gap 11 (5-15); BUN/Creatinine Ratio 7.0 (10.0-20.0); Blood Urea Nitrogen 6 mg/dL (9-23); Calcium 8.8 mg/dL (8.7-10.4); Carbon Dioxide 22 mmol/L (20-31); Chloride 110 mmol/L (98-107); Cholesterol 156 mg/dL (< 200); Glucose 95 mg/dL (74-106); HDL Cholesterol 28 mg/dL (40-59); Potassium 3.7 mmol/L (3.5-5.1); Sodium 143 mmol/L (136-145); Total Protein 6.3 g/dL (5.7-8.2); Triglycerides 158 mg/dL (< 150)
[2025-03-10 07:36] LABS: Bilirubin, Total 1.6 mg/dL (0.2-1.0)
[2025-03-10] MEDS ORDERED: POLYETHYLENE GLYCOL 17 GM PWDR PO PRN (09:15)
--- NOTE | 2025-03-10 13:25 | DVH ---
PROCEDURE: MRI MRCP MRI Indication: Abdominal pain COMPARISON: 03/08/2025 TECHNIQUE: Multiplanar multisequence images of the brain are obtained. FINDINGS: Tiny bilateral pleural effusions. Adrenal glands, spleen, pancreas unremarkable. CBD measures 4 mm. No intrahepatic duct dilatation. Po ssible 2 mm calculus in the mid to distal CBD. Coronal T2 sequence image 17 of 35. There is no evide nce for gallstones in the gallbladder. No hydronephrosis. Right hepatic lobe cyst measuring 9 mm. Stomach is partially distended. IMPRESSION: Possible calculus in the mid to distal CBD measuring 2 mm. Common bile duct diameter within normal l imits. Recommend GI consultation for further evaluation.
--- NOTE | 2025-03-10 15:37 | DVHINCON2 ---
Date of service: Mar 10, [address] Jeffries Reason for Consultation Abdominal pain nausea History of Present Illness This 59-year-old female presented to the emergency room with complaints of epigastric pain nausea constipation patient has been having abdominal pains on and off for the last few years comes and goes and gets better with symptomatic with the symptomatic treatment. Patient has had workup in [place] details of which is unavailable. Patient has got persistent nausea constipation also she has been she was also in another hospital [facility] with similar workup for for which she had workup by the details of which is not available at this time. Denies any history of any alcohol abuse no history of any hepatitis patient was found to be jaundiced and if the abnormal liver enzymes and hence the reason for the GI consult with the abdominal pain. Ultrasound of the gallbladder showed mild sludge in the gallbladder Past Medical History Moderate upper abdominal pains of undetermined detailed Past Surgical History Non Family History: G8 MOTHER, Cardiovascular disease Family History Noncontributory Social History Denies smoking or drinking Allergies: Coded Allergies: Morphine (Verified Allergy, Unknown, 03/08/25) Home Meds Reported Medications Sertraline Hcl (Sertraline Hcl) 50 Mg Tab, 50 TAB PO DAILY, #30 TAB 5 Refills 03/09/25 Current Medications Current Medications Medications (Trade) Dose Ordered Sig/Justus Route PRN Reason Start Time Stop Time Status Last Admin Piperacillin Sod/ Tazobactam Sod 100 ml @ 25 mls/hr Q8H IV 03/10/25 00:00 03/10/25 09:00 Polyethylene Glycol (Miralax 17GM Powder) 17 gm DAILYPRN PRN PO FOR CONSTIPATION 03/10/25 09:15 Review of Systems Noncontributory Vital Signs Vital Signs Date Time Temp Pulse Resp B/P (MAP) Pulse Ox O2 Delivery O2 Flow Rate FiO2 03/10/25 12:34 97.8 66 16 118/66 (83) 96 97.8 03/10/25 08:00 Room Air* 0 21 Physical Exam Moderately built and nourished female in no acute distress but chronically ill looking complaining of abdominal pain HEENT examination revealed no icterus Lungs are clear Cardiovascular unremarkable Abdomen is soft mild tenderness in the epigastrium and right upper quadrant no rigidity no guarding no masses Extremities no edema no varicosities no clubbing Neurological grossly intact Labs/Diagnostic Data Labs Test 03/10/25 06:38 03/09/25 06:24 03/09/25 04:00 03/08/25 21:46 Range/Units White Blood Count 7.3 4.4-10.8 10^3/uL Red Blood Count 4.21 4.0-5.20 10^6/uL Hemoglobin 12.1 #L 12.2-16.2 g/dL Hematocrit 36.4 # 36.0-46.0 % Mean Corpuscular Volume 86.5 80.0-100.0 fL Mean Corpuscular Hemoglobin 28.6 28.0-32.0 pg Mean Corpuscular Hemoglobin Concent 33.1 32.0-36.0 g/dL Red Cell Distribution Width 13.4 11.8-14.3 % Platelet Count 243 140-450 10^3/uL Mean Platelet Volume 8.3 6.9-10.8 fL Neutrophils (%) (Auto) 73.3 37.0-80.0 % Lymphocytes (%) (Auto) 20.0 10.0-50.0 % Monocytes (%) (Auto) 5.4 0.0-12.0 % Eosinophils (%) (Auto) 1.2 0.0-7.0 % Basophils (%) (Auto) 0.1 0.0-2.0 % Neutrophils # (Auto) 5.4 1.6-8.6 10 ^3/uL Lymphocytes # (Auto) 1.5 0.4-5.4 10 ^3/uL Monocytes # (Auto) 0.4 0-1.3 10 ^3/uL Eosinophils # (Auto) 0.1 0-0.8 10 ^3/uL Basophils # (Auto) 0 0-0.2 10 ^3/uL Nucleated Red Blood Cells 0.0 % Sodium Level 143 136-145 mmol/L Potassium Level 3.7 3.5-5.1 mmol/L Chloride Level 110 H 98-107 mmol/L Carbon Dioxide Level 22 20-31 mmol/L Anion Gap 11 5-15 Blood Urea Nitrogen 6 L 9-23 mg/dL Creatinine 0.86 0.550-1.02 mg/dL Glomerular Filtration Rate Calc 78 >90 mL/min BUN/Creatinine Ratio 7.0 L 10.0-20.0 Serum Glucose 95 74-106 mg/dL Calcium Level 8.8 8.7-10.4 mg/dL Total Bilirubin 1.6 H 0.2-1.0 mg/dL Aspartate Amino Transferase (AST) 78 H 13-40 U/L Alanine Aminotransferase (ALT) 147 H 7-40 U/L Alkaline Phosphatase 168 H 46-116 U/L Total Protein 6.3 5.7-8.2 g/dL Albumin 4.1 3.2-4.8 g/dL Triglycerides Level 158 H < 150 mg/dL Cholesterol Level 156 < 200 mg/dL LDL Cholesterol 109 H < 100 mg/dL HDL Cholesterol 28 L 40-59 mg/dL Hemoglobin A1c 5.5 <5.7 % A1C Direct Bilirubin 2.4 H <0.3 mg/dL Troponin I High Sensitivity < 3 L </=34 ng/L B-Type Natriuretic Peptide 95.30 0-100 pg/mL Lipase 42 12-53 U/L Thyroid Stimulating Hormone (TSH) 1.11 0.55-4.78 uIU/mL Hepatitis A IgM Antibody Negative Hepatitis B Surface Antigen Negative Negative Hepatitis B Core IgM Antibody Negative Negative Hepatitis C Antibody Negative Negative Urine Opiates Screen Neg NEGATIVE Urine Fentanyl Screen Neg NEGATIVE Urine Barbiturates Screen Neg NEGATIVE Urine Phencyclidine Screen Neg NEGATIVE Urine Amphetamines Screen Neg NEGATIVE Urine Benzodiazepines Screen Neg NEGATIVE Urine Cocaine Screen Neg NEGATIVE Urine Cannabinoids Screen Neg NEGATIVE Urine Color Yellow Yellow Urine Clarity Clear Clear Urine pH 7.5 5.0-9.0 Urine Specific [place] 1.019 1.001-1.035 Urine Protein Negative Negative Urine Ketones Negative Negative Urine Blood Negative Negative /uL Urine Nitrite Negative Negative Urine Bilirubin 1+ H Negative Urine Urobilinogen Over Negative mg/dL Urine Leukocyte Esterase Negative Negative /uL Urine RBC None seen 0 - 4 /hpf Urine Microscopic WBC 1 0-5 /HPF Urine Squamous Epithelial Cells Few <5 /hpf Urine Bacteria None seen None Seen /hpf Urine Mucus Few None Seen Urine Glucose Normal Normal mg/dL Assessment 59-year-old with a history of abdominal pain nausea constipation patient has similar problems on and off in the past had some episodes of vomiting but no hematemesis. Patient has been seen with similar problems in the past in [place] as well as in [facility] recently and workup had shown no abnormalities there apparently but details of which is not available patient has got abnormal liver enzymes which was worsened with increasing alk asthma alkaline phosphatase as soon as ALT and AST. Bilirubin is 1.7. Patient had an MRI CT scan showed no gross abnormalities but without contrast and ultrasound showed possible sludge because of the abnormal liver enzymes an MRCP was done all ordered which has shown there is choledocholithiasis. Her lipase levels as normal Clinical impression is Gallbladder disease with choledocholithiasis Plan/Recommendation We will recommend ERCP evaluation in a referral center and further treatment including cholecystectomy in a referral center Thank you Dr. Whitfield Plan discussed with: Patient RADHA WHITFIELD MD Mar 10, 2025 15:37
--- NOTE | 2025-03-10 17:26 | DVHPNRES ---
Progress Note Date Seen: Mar 10, 2025 Resident Creating Document: HAY FINLEY RESIDENT Medical Necessity Reason Pt with a Central, PICC or Fol: No Subjective Review of Systems Patient is a 59-year-old female with prior medical history of anxiety, who presented to the ED with chief complaint of abdominal pain. The patient states that sudden onset of epigastric pain, described as sharp, 10/10 in intensity, radiating towards her back, associated with vomiting, nausea, and chills. She denied fever, diarrhea, bloody vomitus, diaphoresis, chest pain, recent sick contacts, and palpitations. due to persistence of symptoms she sought medical attention. The patient states that she has had issues with abdominal pain for the last year, and was recently seen at [facility] where she was told there was nothing wrong. On evaluation in the ED, patient was in mild distress and hypertensive. Initial labs unremarkable CBC, chemical panel significant liver function tests, Lipase 73 , UA is unremarkable, hepatitis panel is negative, and UDS is negative. Abdominal CT shows noncalcified gallstones, no free air or free fluid, no findings suggestive of a bowel obstruction, moderate degree of stool burden throughout the colon, 2.2 cm fat containing umbilical hernia, no nephrolithiasis or hydronephrosis. Upper quadrant ultrasound is significant for gallbladder with trace sludge with no evidence for stones or wall thickening and diffuse hepatic steatosis. The patient was admitted for further workup and monitoring. Personal history: Anxiety Allergies: Morphine Surgical history: Denies Social: Denies drug, tobacco, and alcohol use. States she currently lives with her sister and feels safe. Patient seen at bedside. She is AOx4, she says she feels better, abdominal pain has resolved, she prefers 1 mild episode of nausea overnight, she is tolerating oral diet, ambulating. She currently denies nausea, vomiting, diarrhea, palpitations, abdominal pain, dysuria, hematuria, and other symptoms. No adverse events overnight. MRCP was ordered and showed possible calculus in the mid to distal common bile duct measuring 2 mm. She was evaluated by GI, who stated that the patient requires transfer to higher level of care for ERCP. A manager social responsibility consult has been placed for this. She will continue on current management here while awaiting transfer. We will continue to monitor. Objective vital signs Vital Sign Date Time Temp Pulse Resp B/P (MAP) Pulse Ox O2 Delivery O2 Flow Rate FiO2 03/10/25 17:00 98.2 69 16 129/70 (89) 97 98.2 03/10/25 08:00 Room Air* 0 21 Total Intake and Output 03/09/25 03/09/25 03/10/25 15:00 23:00 07:00 Intake Total 840 ml 580 ml 200 ml Output Total 2 ml Balance 840 ml 580 ml 198 ml medications Current Medications Medications Dose Ordered Sig/Justus Route Start Time Stop Time Status Last Admin Dose Admin Sodium Chloride 1,000 ml @ 120 mls/hr Q8H20M IV 03/09/25 01:30 03/10/25 10:50 120 MLS/HR Ketorolac Tromethamine 15 mg Q6HPRN PRN IV 03/09/25 01:30 03/14/25 01:29 Pantoprazole Sodium 40 mg DAILY IV 03/09/25 10:00 03/10/25 09:00 40 MG Ondansetron HCl 4 mg Q6HPRN PRN IV 03/09/25 06:15 Piperacillin Sod/ Tazobactam Sod 100 ml @ 25 mls/hr Q8H IV 03/10/25 00:00 03/10/25 16:32 25 MLS/HR Polyethylene Glycol 17 gm DAILYPRN PRN PO 03/10/25 09:15 Examination General: The patient alert and oriented in person place and time. Patient following commands HEENT: Normocephalic, atraumatic, normal reactive pupils, anicteric, pink conjunctiva, pink moist mucous membrane Respiratory/pulmonary: Clear lungs bilaterally, vesicular murmurs present in almost all lung hills, no associated crackles or wheezes. Abdomen: Abdomen nondistended, normal bowel sounds, soft, there is no pain to palpation in any of the abdominal quadrants, Yepez negative, no palpable masses. Cardiovascular: Normal RRR, Normal S1 and S2 Extremities: no deformities, there is no peripheral edema present at the lower extremities, pulses are palpable Skin: No rashes or pruritus, there is no sacral edema present at this time. Neurological: Intact cranial nerves with no focal neurologic deficits laboratory and microbiology Laboratory Tests 03/10/25 06:38 Test 03/10/25 06:38 Range/Units Serum Glucose 95 74-106 mg/dL Problem List/Assessment/Plan Problem List/Assessment/Plan Assessment and Plan: Intractable abdominal pain, possibly due Biliary colic - ketorolac 15 mg IV q.6 hours PRN Choledocholithiasis -MRCP: possible calculus in the mid to distal CBD measuring 2 mm. Common bile duct diameter within normal limits. -GI: We will recommend ERCP evaluation and referral center and further treatment including cholecystectomy and referral center. -Zosyn IV q.8 hours -special services supervisor consult for transfer to higher level of care for ERCP has been placed. Transaminitis, likely due to above Dehydration - LR 1000 cc once - NS 120 cc/hr Pancreatitis, ruled out Hepatic Steatosis - right upper quadrant ultrasound: Hepatic steatosis Constipation - MiraLAX 17 g p.o. once Anxiety Umbilical hernia - abdominal CT: 2.2 cm fat containing umbilical hernia Diet: clear liquid DVT prophylaxis: Not indicated, lilibeth 0 GI prophylaxis: Not indicated Case discussed with Dr. Jeffries Goals of care discussed with patient for 24 minutes. Plan discussed with: Patient My Orders My Orders Orders - HAY FINLEY RESIDENT Procedure Category Date Status Time Polyethylene Glycol PHA 03/10/25 In Process 17g Powder (Miralax 09:15 * Dish Person CONS 03/10/25 Transmitted Consult Date of Service: Mar 11, 2025 Billing Provider: BRUCE JEFFRIES MD Common Visit Codes: [id number] INP/OBS CARE(HIGH) HAY FINLEY RESIDENT Mar 10, 2025 17:26 BRUCE JEFFRIES MD Mar 11, 2025 21:02
--- NOTE | 2025-03-10 18:43 | DVHINCON2 ---
Date of service: Mar 10, 2025 History of Present Illness 59-year-old female complaining of five day history of epigastric abdominal pain associated with nausea and vomiting. Today patient is feeling much better. Past Medical History Depression Past Surgical History None Family History: Cardiovascular disease G8 MOTHER, Family History Noncontributory Social History Denies alcohol, tobacco, IV drug use Allergies: Coded Allergies: Morphine (Verified Allergy, Unknown, 03/08/25) Home Meds Reported Medications Sertraline Hcl (Sertraline Hcl) 50 Mg Tab, 50 TAB PO DAILY, #30 TAB 5 Refills 03/09/25 Current Medications Current Medications Medications (Trade) Dose Ordered Sig/Justus Route PRN Reason Start Time Stop Time Status Last Admin Piperacillin Sod/ Tazobactam Sod 100 ml @ 25 mls/hr Q8H IV 03/10/25 00:00 03/10/25 16:32 Polyethylene Glycol (Miralax 17GM Powder) 17 gm DAILYPRN PRN PO FOR CONSTIPATION 03/10/25 09:15 Vital Signs Vital Signs Date Time Temp Pulse Resp B/P (MAP) Pulse Ox O2 Delivery O2 Flow Rate FiO2 03/10/25 17:00 98.2 69 16 129/70 (89) 97 98.2 03/10/25 08:00 Room Air* 0 21 Physical Exam GEN: Age-appropriate female in no acute distress. Alert. HEENT: Normocephalic atraumatic. Moist mucous membranes. Anicteric sclerae. CV: RRR Respiratory: CTAB ABD: Currently soft. Nontender nondistended. Abdominal ultrasound: Trace gallbladder sludge without stones. Common bile duct within normal limits. MRCP shows possible 2 mm common bile duct stone. Labs/Diagnostic Data Labs Test 03/10/25 06:38 03/09/25 06:24 03/09/25 04:00 03/08/25 21:46 Range/Units White Blood Count 7.3 4.4-10.8 10^3/uL Red Blood Count 4.21 4.0-5.20 10^6/uL Hemoglobin 12.1 #L 12.2-16.2 g/dL Hematocrit 36.4 # 36.0-46.0 % Mean Corpuscular Volume 86.5 80.0-100.0 fL Mean Corpuscular Hemoglobin 28.6 28.0-32.0 pg Mean Corpuscular Hemoglobin Concent 33.1 32.0-36.0 g/dL Red Cell Distribution Width 13.4 11.8-14.3 % Platelet Count 243 140-450 10^3/uL Mean Platelet Volume 8.3 6.9-10.8 fL Neutrophils (%) (Auto) 73.3 37.0-80.0 % Lymphocytes (%) (Auto) 20.0 10.0-50.0 % Monocytes (%) (Auto) 5.4 0.0-12.0 % Eosinophils (%) (Auto) 1.2 0.0-7.0 % Basophils (%) (Auto) 0.1 0.0-2.0 % Neutrophils # (Auto) 5.4 1.6-8.6 10 ^3/uL Lymphocytes # (Auto) 1.5 0.4-5.4 10 ^3/uL Monocytes # (Auto) 0.4 0-1.3 10 ^3/uL Eosinophils # (Auto) 0.1 0-0.8 10 ^3/uL Basophils # (Auto) 0 0-0.2 10 ^3/uL Nucleated Red Blood Cells 0.0 % Sodium Level 143 136-145 mmol/L Potassium Level 3.7 3.5-5.1 mmol/L Chloride Level 110 H 98-107 mmol/L Carbon Dioxide Level 22 20-31 mmol/L Anion Gap 11 5-15 Blood Urea Nitrogen 6 L 9-23 mg/dL Creatinine 0.86 0.550-1.02 mg/dL Glomerular Filtration Rate Calc 78 >90 mL/min BUN/Creatinine Ratio 7.0 L 10.0-20.0 Serum Glucose 95 74-106 mg/dL Calcium Level 8.8 8.7-10.4 mg/dL Total Bilirubin 1.6 H 0.2-1.0 mg/dL Aspartate Amino Transferase (AST) 78 H 13-40 U/L Alanine Aminotransferase (ALT) 147 H 7-40 U/L Alkaline Phosphatase 168 H 46-116 U/L Total Protein 6.3 5.7-8.2 g/dL Albumin 4.1 3.2-4.8 g/dL Triglycerides Level 158 H < 150 mg/dL Cholesterol Level 156 < 200 mg/dL LDL Cholesterol 109 H < 100 mg/dL HDL Cholesterol 28 L 40-59 mg/dL Hemoglobin A1c 5.5 <5.7 % A1C Direct Bilirubin 2.4 H <0.3 mg/dL Troponin I High Sensitivity < 3 L </=34 ng/L B-Type Natriuretic Peptide 95.30 0-100 pg/mL Lipase 42 12-53 U/L Thyroid Stimulating Hormone (TSH) 1.11 0.55-4.78 uIU/mL Hepatitis A IgM Antibody Negative Hepatitis B Surface Antigen Negative Negative Hepatitis B Core IgM Antibody Negative Negative Hepatitis C Antibody Negative Negative Urine Opiates Screen Neg NEGATIVE Urine Fentanyl Screen Neg NEGATIVE Urine Barbiturates Screen Neg NEGATIVE Urine Phencyclidine Screen Neg NEGATIVE Urine Amphetamines Screen Neg NEGATIVE Urine Benzodiazepines Screen Neg NEGATIVE Urine Cocaine Screen Neg NEGATIVE Urine Cannabinoids Screen Neg NEGATIVE Urine Color Yellow Yellow Urine Clarity Clear Clear Urine pH 7.5 5.0-9.0 Urine Specific [place] 1.019 1.001-1.035 Urine Protein Negative Negative Urine Ketones Negative Negative Urine Blood Negative Negative /uL Urine Nitrite Negative Negative Urine Bilirubin 1+ H Negative Urine Urobilinogen Over Negative mg/dL Urine Leukocyte Esterase Negative Negative /uL Urine RBC None seen 0 - 4 /hpf Urine Microscopic WBC 1 0-5 /HPF Urine Squamous Epithelial Cells Few <5 /hpf Urine Bacteria None seen None Seen /hpf Urine Mucus Few None Seen Urine Glucose Normal Normal mg/dL Assessment 1. Choledocholithiasis Plan/Recommendation 1. Recommend GI consultation for possible ERCP Plan discussed with: Patient LEONEL BAKER MD Mar 10, 2025 18:43
[2025-03-11] VITALS (8 sets, daily range): BP systolic 113–121; BP diastolic 57–71; PULSE 62–72; RESP 15–20; TEMP 97.5–98; O2SAT 95–98
[2025-03-11 06:22] LABS: Hematocrit 36.8 % (36.0-46.0); Hemoglobin 12.4 g/dL (12.2-16.2); Mean Corpuscular Hemoglobin 29.0 pg (28.0-32.0); Mean Corpuscular Volume 85.9 fL (80.0-100.0); Nucleated Red Blood Cells % 0.0 %
[2025-03-11 06:33] LABS: Albumin 4.1 g/dL (3.2-4.8); Anion Gap 12 (5-15); Bilirubin, Total 0.9 mg/dL (0.2-1.0); Calcium 8.9 mg/dL (8.7-10.4); Carbon Dioxide 23 mmol/L (20-31); Glucose 101 mg/dL (74-106); Sodium 142 mmol/L (136-145); Total Protein 6.8 g/dL (5.7-8.2)
[2025-03-11 06:40] LABS: Alanine Aminotransferase 107 U/L (7-40); Alkaline Phosphatase 150 U/L (46-116); BUN/Creatinine Ratio 5.6 (10.0-20.0); Blood Urea Nitrogen < 5 mg/dL (9-23); Chloride 107 mmol/L (98-107); Potassium 3.4 mmol/L (3.5-5.1)
[2025-03-11] MEDS: POTASSIUM CHLORIDE 20 MEQ, LIDOCAINE 1% (LOCAL ANESTH.) 2 ML in SODIUM CHL 0.9% 100 ML IV ONE (10:15)
--- NOTE | 2025-03-11 11:46 | DVHPN2 ---
Progress Note - Dictate Date Seen: Mar 11, 2025 Medical Necessity Reason Pt with a Central, PICC or Fol: No Subjective E: no major events o/n. feels much better. denies abd pain. vital signs Vital Sign Date Time Temp Pulse Resp B/P (MAP) Pulse Ox O2 Delivery O2 Flow Rate FiO2 03/11/25 09:00 97.5 70 15 121/71 (88) 96 97.5 03/10/25 20:00 Room Air* 0 21 Total Intake and Output 03/10/25 03/10/25 03/11/25 15:00 23:00 07:00 Intake Total 1300 ml 1300 ml Balance 1300 ml 1300 ml medications Current Medications Medications Dose Ordered Sig/Justus Route Start Time Stop Time Status Last Admin Dose Admin Sodium Chloride 1,000 ml @ 120 mls/hr Q8H20M IV 03/09/25 01:30 03/10/25 23:27 120 MLS/HR Ketorolac Tromethamine 15 mg Q6HPRN PRN IV 03/09/25 01:30 03/14/25 01:29 Pantoprazole Sodium 40 mg DAILY IV 03/09/25 10:00 03/11/25 10:27 40 MG Ondansetron HCl 4 mg Q6HPRN PRN IV 03/09/25 06:15 Piperacillin Sod/ Tazobactam Sod 100 ml @ 25 mls/hr Q8H IV 03/10/25 00:00 03/11/25 10:27 25 MLS/HR Polyethylene Glycol 17 gm DAILYPRN PRN PO 03/10/25 09:15 objective GEN: NAD ABD: soft. NT/ND. laboratory and microbiology Laboratory Tests 03/11/25 05:18 Test 03/11/25 05:18 Range/Units Serum Glucose 101 74-106 mg/dL Assessment/Plan A: 1. Choledocholithiasis poss have passed as LFTs are coming down. P: 1. since it is Sun and transfer to another hospital for ERCP is unlikely, will get repeat MRCP to assess for CBD stone. If neg then poss surgery if patient agrees. if positive for CBD stone, then she will need to get ERCP. Plan discussed with: Patient LEONEL BAKER MD Mar 11, 2025 11:46
--- NOTE | 2025-03-11 16:22 | DVHPNRES ---
Progress Note Date Seen: Mar 11, 2025 Resident Creating Document: AMEYA WINSTON RESIDENT Medical Necessity Reason Pt with a Central, PICC or Fol: No Subjective Review of Systems Patient is a 59-year-old female with prior medical history of anxiety, who presented to the ED with chief complaint of abdominal pain. The patient states that sudden onset of epigastric pain, described as sharp, 10/10 in intensity, radiating towards her back, associated with vomiting, nausea, and chills. She denied fever, diarrhea, bloody vomitus, diaphoresis, chest pain, recent sick contacts, and palpitations. due to persistence of symptoms she sought medical attention. The patient states that she has had issues with abdominal pain for the last year, and was recently seen at [facility] where she was told there was nothing wrong. On evaluation in the ED, patient was in mild distress and hypertensive. Initial labs unremarkable CBC, chemical panel significant liver function tests, Lipase 73 , UA is unremarkable, hepatitis panel is negative, and UDS is negative. Abdominal CT shows noncalcified gallstones, no free air or free fluid, no findings suggestive of a bowel obstruction, moderate degree of stool burden throughout the colon, 2.2 cm fat containing umbilical hernia, no nephrolithiasis or hydronephrosis. Upper quadrant ultrasound is significant for gallbladder with trace sludge with no evidence for stones or wall thickening and diffuse hepatic steatosis. The patient was admitted for further workup and monitoring. Personal history: Anxiety Allergies: Morphine Surgical history: Denies Social: Denies drug, tobacco, and alcohol use. States she currently lives with her sister and feels safe. Review of Systems: Constitutional: Denies weight loss, fever and chills. HEENT: Denies changes in vision and hearing. Respiratory: Denies shortness of breath and cough Cardiovascular: Denies chest discomfort or palpitations GI: Mild abdominal pain and constipation, Denies abdominal distention, diarrhea : Denies dysuria and urinary frequency. Musculoskeletal: Refers localized back pain Skin: Denies rash and pruritus. Neurological: denies dizziness headache vision or hearing problems 03/10-Patient seen at bedside. She is AOx4, she says she feels better, abdominal pain has resolved, she prefers 1 mild episode of nausea overnight, she is tolerating oral liquid diet, ambulating. She currently denies nausea, vomiting, diarrhea, palpitations, abdominal pain, dysuria, hematuria, and other symptoms. No adverse events overnight. MRCP was ordered and showed possible calculus in the mid to distal common bile duct measuring 2 mm. She was evaluated by GI, who stated that the patient requires transfer to higher level of care for ERCP. A director of social work consult has been placed for this. She will continue on current management here while awaiting transfer. We will continue to monitor. 03/11-Patient was seen at bedside. She is AOx4 and states that the pain has resolved. Supervisor Air Conditioning Installer contacted [facility] and were unable to transfer the patient there because the hospital was at its capacity. dietary services manager tried reaching out to [facility] and she will be transferred there as soon as they have a bed for her. MRCP was done as recommended by the surgeon and it showed possible calculus the mid to distal CBD measuring 2 mm. We will continue to monitor her on her current management plan while awaiting transfer to higher level of care. Objective vital signs Vital Sign Date Time Temp Pulse Resp B/P (MAP) Pulse Ox O2 Delivery O2 Flow Rate FiO2 03/11/25 13:00 97.8 62 16 117/67 (84) 97 97.8 03/11/25 08:15 Room Air* 0 21 Total Intake and Output 03/10/25 03/10/25 03/11/25 15:00 23:00 07:00 Intake Total 1300 ml 1300 ml Balance 1300 ml 1300 ml medications Current Medications Medications Dose Ordered Sig/Justus Route Start Time Stop Time Status Last Admin Dose Admin Sodium Chloride 1,000 ml @ 120 mls/hr Q8H20M IV 03/09/25 01:30 03/11/25 11:50 120 MLS/HR Ketorolac Tromethamine 15 mg Q6HPRN PRN IV 03/09/25 01:30 03/14/25 01:29 Pantoprazole Sodium 40 mg DAILY IV 03/09/25 10:00 03/11/25 10:27 40 MG Ondansetron HCl 4 mg Q6HPRN PRN IV 03/09/25 06:15 Piperacillin Sod/ Tazobactam Sod 100 ml @ 25 mls/hr Q8H IV 03/10/25 00:00 03/11/25 10:27 25 MLS/HR Polyethylene Glycol 17 gm DAILYPRN PRN PO 03/10/25 09:15 Examination General: The patient alert and oriented in person place and time. Patient following commands HEENT: Normocephalic, atraumatic, normal reactive pupils, anicteric, pink conjunctiva, pink moist mucous membrane Respiratory/pulmonary: Clear lungs bilaterally, vesicular murmurs present in almost all lung hills, no associated crackles or wheezes. Abdomen: Abdomen nondistended, normal bowel sounds, soft, there is no pain to palpation in any of the abdominal quadrants, Yepez negative, no palpable masses. Cardiovascular: Normal RRR, Normal S1 and S2 Extremities: no deformities, there is no peripheral edema present at the lower extremities, pulses are palpable Skin: No rashes or pruritus, there is no sacral edema present at this time. Neurological: Intact cranial nerves with no focal neurologic deficits laboratory and microbiology Laboratory Tests 03/11/25 05:18 Test 03/11/25 05:18 Range/Units Serum Glucose 101 74-106 mg/dL Labs and/or images reviewed: Labs reviewed by me, Image(s) reviewed by me Problem List/Assessment/Plan Problem List/Assessment/Plan Intractable abdominal pain, possibly due Biliary colic - ketorolac 15 mg IV q.6 hours PRN Choledocholithiasis -MRCP: possible calculus in the mid to distal CBD measuring 2 mm. Common bile duct diameter within normal limits. -GI: We will recommend ERCP evaluation and referral center and further treatment including cholecystectomy and referral center. -Zosyn IV q.8 hours -dietary services manager consult for transfer to higher level of care for ERCP has been placed. Transaminitis, likely due to above Dehydration - LR 1000 cc once - NS 120 cc/hr Pancreatitis, ruled out Hepatic Steatosis - right upper quadrant ultrasound: Hepatic steatosis Constipation - MiraLAX 17 g p.o. once Anxiety Umbilical hernia - abdominal CT: 2.2 cm fat containing umbilical hernia Diet: clear liquid DVT prophylaxis: Not indicated, lilibeth 0 GI prophylaxis: Not indicated Case discussed with Dr. Jeffries Goals of care discussed with patient for > 24 minutes. Plan discussed with: Patient Plan discussed with: Patient My Orders My Orders Orders - AMEYA WINSTON RESIDENT Procedure Category Date Status Time Mrcp Mri MRI 03/11/25 Logged 12:05 Date of Service: Mar 11, 2025 Billing Provider: BRUCE JEFFRIES MD Common Visit Codes: [id number] INP/OBS CARE(HIGH) AMEYA WINSTON Mar 11, 2025 16:22 BRUCE JEFFRIES MD Mar 11, 2025 21:03
[2025-03-12] VITALS (7 sets, daily range): BP systolic 115–130; BP diastolic 60–77; PULSE 63–70; RESP 16–18; TEMP 97.3–98.1; O2SAT 94–98
[2025-03-12 08:02] LABS: Hematocrit 38.1 % (36.0-46.0); Hemoglobin 12.7 g/dL (12.2-16.2); Mean Corpuscular Hemoglobin 28.6 pg (28.0-32.0); Mean Corpuscular Volume 85.8 fL (80.0-100.0); Nucleated Red Blood Cells % 0.1 %
[2025-03-12 08:17] LABS: Anion Gap 11 (5-15); Carbon Dioxide 24 mmol/L (20-31); Potassium 3.6 mmol/L (3.5-5.1); Sodium 143 mmol/L (136-145)
[2025-03-12 08:19] LABS: Calcium 9.0 mg/dL (8.7-10.4)
[2025-03-12 08:20] LABS: Chloride 108 mmol/L (98-107)
[2025-03-12 08:23] LABS: BUN/Creatinine Ratio 5.6 (10.0-20.0); Glucose 99 mg/dL (74-106)
--- NOTE | 2025-03-12 08:24 | ECG ---
[facility] Test Date: 2025-03-11 Test Time: 09:25:06 Pat Name: ADELIA CLEMENSDepartment: Room: 0296 B Gender: F Deployment Engineer: SUZANNE : 1965 Requested By: HAY FINLEY Order Number: [id number] Reading MD: Feng Mederos Measurements Intervals [place] Rate: 67 P: 61 DE: 168 QRS: 74 QRSD: 89 T: 40 QT: 391 QTc: 413 Interpretive Statements Sinus rhythm Borderline T abnormalities, anterior leads Electronically Signed On 03-13-2025 13:22:21 PDT by Feng Mederos Please click the below link to view image of tracing.
[2025-03-12 08:26] LABS: Blood Urea Nitrogen 5 mg/dL (9-23)
[2025-03-12 10:51] LABS: Albumin 4.1 g/dL (3.2-4.8); Total Protein 6.4 g/dL (5.7-8.2)
[2025-03-12 10:52] LABS: Alanine Aminotransferase 78.0 U/L (7-40); Alkaline Phosphatase 128.0 U/L (46-116); Bilirubin, Direct 0.3 mg/dL (<0.3)
[2025-03-12 11:03] LABS: Bilirubin, Total 0.7 mg/dL (0.2-1.0)
--- NOTE | 2025-03-12 12:56 | DVH ---
[id number] MRI MRCP MRI Attending Name: HAY MERCADO COMPARISON: MRI MRCP MRI on DOS: 03/10/25 INDICATION: Follow up on CBD stone TECHNIQUE: MRCP was performed without the use of intravenous contrast using a MRI imaging system. Three-dimensional MRCP was performed using maximum intensity projection reconstruction on an [facility] ent workstation under concurrent supervision. FINDINGS: Visualized lower thorax: Limited imaging of the thorax demonstrates no suspicious pleural or parenchy mal disease. Liver: Normal in morphology and signal intensity. Gallbladder: No evidence of cholelithiasis or gallbladder wall thickening. Biliary system: There is no intrahepatic or extrahepatic bile duct dilatation. No filling defect to s uggest choledocholithiasis. Spleen: Normal in morphology and signal intensity. Pancreas: Normal in morphology and signal intensity. No dilatation of the pancreatic Adrenal glands: Normal in morphology and signal intensity. Kidneys: The kidneys are symmetric in size and appearance. No hydronephrosis. Urinary tract: The included ureters, as visualized, are normal in course and caliber. Small right nitza al cyst. GI tract: The included portions of the bowel are within normal limits. Lymph nodes: No enlarged lymph nodes. Peritoneum: No ascites. Musculoskeletal: The bone marrow signal intensity is within normal limits. IMPRESSION: 1. No intra or extra hepatic biliary ductal dilatation. No MRI evidence of choledocholithiasis.
--- NOTE | 2025-03-12 14:40 | DVHPN2 ---
Progress Note - Dictate Date Seen: Mar 12, 2025 Medical Necessity Reason Pt with a Central, PICC or Fol: No Subjective E: no major events o/n. feels much better. denies abd pain. vital signs Vital Sign Date Time Temp Pulse Resp B/P (MAP) Pulse Ox O2 Delivery O2 Flow Rate FiO2 03/12/25 13:47 97.3 63 18 123/64 (83) 97 97.3 03/11/25 20:00 Room Air* 0 21 Total Intake and Output 03/11/25 03/11/25 03/12/25 15:00 23:00 07:00 Intake Total 100 ml 500 ml 700 ml Balance 100 ml 500 ml 700 ml medications Current Medications Medications Dose Ordered Sig/Justus Route Start Time Stop Time Status Last Admin Dose Admin Sodium Chloride 1,000 ml @ 120 mls/hr Q8H20M IV 03/09/25 01:30 03/12/25 08:42 120 MLS/HR Ketorolac Tromethamine 15 mg Q6HPRN PRN IV 03/09/25 01:30 03/14/25 01:29 Pantoprazole Sodium 40 mg DAILY IV 03/09/25 10:00 03/12/25 10:06 40 MG Ondansetron HCl 4 mg Q6HPRN PRN IV 03/09/25 06:15 Piperacillin Sod/ Tazobactam Sod 100 ml @ 25 mls/hr Q8H IV 03/10/25 00:00 03/12/25 08:53 25 MLS/HR Polyethylene Glycol 17 gm DAILYPRN PRN PO 03/10/25 09:15 objective GEN: NAD ABD: soft. NT/ND. Repeat MRCP shows no CBD stone laboratory and microbiology Laboratory Tests 03/12/25 07:06 Test 03/12/25 07:06 Range/Units Serum Glucose 99 74-106 mg/dL Assessment/Plan A: 1. resolved choledocholithiasis. P: 1. no CBD or gallbladder stone. CBD stone may have passed spontaenously. patient is reluctant to proceed with surgery and I agree since there is no evidence of additional stones in GB. if zayda po, DC home per hospitalist. Plan discussed with: Patient LEONEL BAKER MD Mar 12, 2025 14:40
--- NOTE | 2025-03-12 16:23 | DVHPNRES ---
Progress Note Date Seen: Mar 12, 2025 Resident Creating Document: AMEYA WINSTON RESIDENT Medical Necessity Reason Pt with a Central, PICC or Fol: No Subjective Review of Systems Patient is a 59-year-old female with prior medical history of anxiety, who presented to the ED with chief complaint of abdominal pain. The patient states that sudden onset of epigastric pain, described as sharp, 10/10 in intensity, radiating towards her back, associated with vomiting, nausea, and chills. She denied fever, diarrhea, bloody vomitus, diaphoresis, chest pain, recent sick contacts, and palpitations. due to persistence of symptoms she sought medical attention. The patient states that she has had issues with abdominal pain for the last year, and was recently seen at [facility] where she was told there was nothing wrong. On evaluation in the ED, patient was in mild distress and hypertensive. Initial labs unremarkable CBC, chemical panel significant liver function tests, Lipase 73 , UA is unremarkable, hepatitis panel is negative, and UDS is negative. Abdominal CT shows noncalcified gallstones, no free air or free fluid, no findings suggestive of a bowel obstruction, moderate degree of stool burden throughout the colon, 2.2 cm fat containing umbilical hernia, no nephrolithiasis or hydronephrosis. Upper quadrant ultrasound is significant for gallbladder with trace sludge with no evidence for stones or wall thickening and diffuse hepatic steatosis. The patient was admitted for further workup and monitoring. Personal history: Anxiety Allergies: Morphine Surgical history: Denies Social: Denies drug, tobacco, and alcohol use. States she currently lives with her sister and feels safe. Review of Systems: Constitutional: Denies weight loss, fever and chills. HEENT: Denies changes in vision and hearing. Respiratory: Denies shortness of breath and cough Cardiovascular: Denies chest discomfort or palpitations GI: Mild abdominal pain and constipation, Denies abdominal distention, diarrhea : Denies dysuria and urinary frequency. Musculoskeletal: Refers localized back pain Skin: Denies rash and pruritus. Neurological: denies dizziness headache vision or hearing problems 03/10-Patient seen at bedside. She is AOx4, she says she feels better, abdominal pain has resolved, she prefers 1 mild episode of nausea overnight, she is tolerating oral liquid diet, ambulating. She currently denies nausea, vomiting, diarrhea, palpitations, abdominal pain, dysuria, hematuria, and other symptoms. No adverse events overnight. MRCP was ordered and showed possible calculus in the mid to distal common bile duct measuring 2 mm. She was evaluated by GI, who stated that the patient requires transfer to higher level of care for ERCP. A renal social worker consult has been placed for this. She will continue on current management here while awaiting transfer. We will continue to monitor. 03/11-Patient was seen at bedside. She is AOx4 and states that the pain has resolved. Tool Specialist contacted [facility] and were unable to transfer the patient there because the hospital was at its capacity. oil well services superintendent tried reaching out to [facility] and she will be transferred there as soon as they have a bed for her. MRCP was done as recommended by the surgeon and it showed possible calculus the mid to distal CBD measuring 2 mm. We will continue to monitor her on her current management plan while awaiting transfer to higher level of care. 03/12-patient was seen at bedside. She is a AO X 4 and mentions that she does not have abdominal pain. Patient was to be transferred to [facility] today but the transfer was held to first conduct a fresh MRCP. Repeat MRCP was done on the patient today which revealed no CBD stone. Surgery was consulted the patient was cleared for discharge by surgery. We will continue to monitor her. Objective vital signs Vital Sign Date Time Temp Pulse Resp B/P (MAP) Pulse Ox O2 Delivery O2 Flow Rate FiO2 03/12/25 13:47 97.3 63 18 123/64 (83) 97 97.3 03/11/25 20:00 Room Air* 0 21 Total Intake and Output 03/11/25 03/11/25 03/12/25 15:00 23:00 07:00 Intake Total 100 ml 500 ml 700 ml Balance 100 ml 500 ml 700 ml medications Current Medications Medications Dose Ordered Sig/Justus Route Start Time Stop Time Status Last Admin Dose Admin Sodium Chloride 1,000 ml @ 120 mls/hr Q8H20M IV 03/09/25 01:30 03/12/25 08:42 120 MLS/HR Ketorolac Tromethamine 15 mg Q6HPRN PRN IV 03/09/25 01:30 03/14/25 01:29 Pantoprazole Sodium 40 mg DAILY IV 03/09/25 10:00 03/12/25 10:06 40 MG Ondansetron HCl 4 mg Q6HPRN PRN IV 03/09/25 06:15 Piperacillin Sod/ Tazobactam Sod 100 ml @ 25 mls/hr Q8H IV 03/10/25 00:00 03/12/25 08:53 25 MLS/HR Polyethylene Glycol 17 gm DAILYPRN PRN PO 03/10/25 09:15 Examination General: The patient alert and oriented in person place and time. Patient following commands HEENT: Normocephalic, atraumatic, normal reactive pupils, anicteric, pink conjunctiva, pink moist mucous membrane Respiratory/pulmonary: Clear lungs bilaterally, vesicular murmurs present in almost all lung hills, no associated crackles or wheezes. Abdomen: Abdomen nondistended, normal bowel sounds, soft, there is no pain to palpation in any of the abdominal quadrants, Yepez negative, no palpable masses. Cardiovascular: Normal RRR, Normal S1 and S2 Extremities: no deformities, there is no peripheral edema present at the lower extremities, pulses are palpable Skin: No rashes or pruritus, there is no sacral edema present at this time. Neurological: Intact cranial nerves with no focal neurologic deficits laboratory and microbiology Laboratory Tests 03/12/25 07:06 Test 03/12/25 07:06 Range/Units Serum Glucose 99 74-106 mg/dL Labs and/or images reviewed: Labs reviewed by me, Image(s) reviewed by me Problem List/Assessment/Plan Problem List/Assessment/Plan Intractable abdominal pain, possibly due Biliary colic - ketorolac 15 mg IV q.6 hours PRN Choledocholithiasis -MRCP: possible calculus in the mid to distal CBD measuring 2 mm. Common bile duct diameter within normal limits. -GI: We will recommend ERCP evaluation and referral center and further treatment including cholecystectomy and referral center. -Zosyn IV q.8 hours -oil well services superintendent consult for transfer to higher level of care for ERCP has been placed. Transaminitis, likely due to above Dehydration - LR 1000 cc once - NS 120 cc/hr Pancreatitis, ruled out Hepatic Steatosis - right upper quadrant ultrasound: Hepatic steatosis Constipation - MiraLAX 17 g p.o. once Anxiety Umbilical hernia - abdominal CT: 2.2 cm fat containing umbilical hernia Diet: clear liquid DVT prophylaxis: Not indicated, lilibeth 0 GI prophylaxis: Not indicated Case discussed with Dr. Jeffries Goals of care discussed with patient for > 24 minutes. Plan discussed with: Patient Plan discussed with: Patient Date of Service: Mar 12, 2025 Billing Provider: BRUCE JEFFRIES MD Common Visit Codes: [id number] INP/OBS CARE(HIGH) AMEYA WINSTON RESIDENT Mar 12, 2025 16:23 BRUCE JEFFRIES MD Mar 15, 2025 10:28
--- NOTE | 2025-03-12 16:59 | DVHDSRES ---
Discharge Summary Date of Admission Resident Creating Document: AMEYA WINSTON RESIDENT Mar 09, 2025 at 01:16 Date of Discharge: Mar 12, 2025 Admitting Diagnosis Intractable abdominal pain due to acute nephrolithiasis Labs/Diagnostic Data: Laboratory Results Test 03/12/25 07:06 03/11/25 05:18 03/10/25 06:38 03/09/25 06:24 White Blood Count 4.5 10^3/uL (4.4-10.8) Red Blood Count 4.45 10^6/uL (4.0-5.20) Hemoglobin 12.7 g/dL (12.2-16.2) Hematocrit 38.1 % (36.0-46.0) Mean Corpuscular Volume 85.8 fL (80.0-100.0) Mean Corpuscular Hemoglobin 28.6 pg (28.0-32.0) Mean Corpuscular Hemoglobin Concent 33.4 g/dL (32.0-36.0) Red Cell Distribution Width 13.1 % (11.8-14.3) Platelet Count 303 10^3/uL (140-450) Mean Platelet Volume 8.4 fL (6.9-10.8) Neutrophils (%) (Auto) 41.1 % (37.0-80.0) Lymphocytes (%) (Auto) 49.6 % (10.0-50.0) Monocytes (%) (Auto) 7.0 % (0.0-12.0) Eosinophils (%) (Auto) 1.5 % (0.0-7.0) Basophils (%) (Auto) 0.8 % (0.0-2.0) Neutrophils # (Auto) 1.8 10 ^3/uL (1.6-8.6) Lymphocytes # (Auto) 2.2 10 ^3/uL (0.4-5.4) Monocytes # (Auto) 0.3 10 ^3/uL (0-1.3) Eosinophils # (Auto) 0.1 10 ^3/uL (0-0.8) Basophils # (Auto) 0 10 ^3/uL (0-0.2) Nucleated Red Blood Cells 0.1 % Sodium Level 143 mmol/L (136-145) Potassium Level 3.6 mmol/L (3.5-5.1) Chloride Level 108 mmol/L (98-107) Carbon Dioxide Level 24 mmol/L (20-31) Anion Gap 11 (5-15) Blood Urea Nitrogen 5 mg/dL (9-23) Creatinine 0.89 mg/dL (0.550-1.02) Glomerular Filtration Rate Calc 75 mL/min (>90) BUN/Creatinine Ratio 5.6 (10.0-20.0) Serum Glucose 99 mg/dL (74-106) Calcium Level 9.0 mg/dL (8.7-10.4) Total Bilirubin 0.7 mg/dL (0.2-1.0) Direct Bilirubin 0.3 mg/dL (<0.3) Aspartate Amino Transferase (AST) 22 U/L (13-40) Alanine Aminotransferase (ALT) 78 U/L (7-40) Alkaline Phosphatase 128 U/L (46-116) Total Protein 6.4 g/dL (5.7-8.2) Albumin 4.1 g/dL (3.2-4.8) Magnesium Level 2.4 mg/dL (1.6-2.6) Triglycerides Level 158 mg/dL (< 150) Cholesterol Level 156 mg/dL (< 200) LDL Cholesterol 109 mg/dL (< 100) HDL Cholesterol 28 mg/dL (40-59) Hemoglobin A1c 5.5 % A1C (<5.7) Troponin I High Sensitivity < 3 ng/L (</=34) B-Type Natriuretic Peptide 95.30 pg/mL (0-100) Lipase 42 U/L (12-53) Thyroid Stimulating Hormone (TSH) 1.11 uIU/mL (0.55-4.78) Hepatitis A IgM Antibody Negative Hepatitis B Surface Antigen Negative (Negative) Hepatitis B Core IgM Antibody Negative (Negative) Hepatitis C Antibody Negative (Negative) Test 03/09/25 04:00 03/08/25 21:46 Urine Opiates Screen Neg (NEGATIVE) Urine Fentanyl Screen Neg (NEGATIVE) Urine Barbiturates Screen Neg (NEGATIVE) Urine Phencyclidine Screen Neg (NEGATIVE) Urine Amphetamines Screen Neg (NEGATIVE) Urine Benzodiazepines Screen Neg (NEGATIVE) Urine Cocaine Screen Neg (NEGATIVE) Urine Cannabinoids Screen Neg (NEGATIVE) Urine Color Yellow (Yellow) Urine Clarity Clear (Clear) Urine pH 7.5 (5.0-9.0) Urine Specific [place] 1.019 (1.001-1.035) Urine Protein Negative (Negative) Urine Ketones Negative (Negative) Urine Blood Negative /uL (Negative) Urine Nitrite Negative (Negative) Urine Bilirubin 1+ (Negative) Urine Urobilinogen Over mg/dL (Negative) Urine Leukocyte Esterase Negative /uL (Negative) Urine RBC None seen /hpf (0 - 4) Urine Microscopic WBC 1 /HPF (0-5) Urine Squamous Epithelial Cells Few /hpf (<5) Urine Bacteria None seen /hpf (None Seen) Urine Mucus Few (None Seen) Urine Glucose Normal mg/dL (Normal) Other Laboratory Tests 03/12/25 07:06 Brief Hx & Hospital Course: Patient is a 59-year-old female with prior medical history of anxiety, who presented to the ED with chief complaint of abdominal pain. The patient stated that she had sudden onset of epigastric pain, described as sharp, 10/10 in intensity, radiating towards her back, associated with vomiting, nausea, and chills. She denied fever, diarrhea, bloody vomitus, diaphoresis, chest pain, recent sick contacts, and palpitations. due to persistence of symptoms she sought medical attention. The patient stated that she has had issues with abdominal pain for the last year, and was recently seen at [facility] where she was told there was nothing wrong. On evaluation in the ED, patient was in mild distress and hypertensive. Initial labs unremarkable CBC, chemical panel significant liver function tests, Lipase 73 , UA is unremarkable, hepatitis panel is negative, and UDS is negative. Abdominal CT showed noncalcified gallstones, no free air or free fluid, no findings suggestive of a bowel obstruction, moderate degree of stool burden throughout the colon, 2.2 cm fat containing umbilical hernia, no nephrolithiasis or hydronephrosis. Upper quadrant ultrasound is significant for gallbladder with trace sludge with no evidence for stones or wall thickening and diffuse hepatic steatosis. Patient was initially recommended to be transferred to higher level of care for ERCP. Her signs and symptoms gradually resolved during her hospital stay and her labs started improving. Repeat MRCP done on 03/12/2025 revealed no stones in the CBD and she was cleared for discharge by surgery. On evaluation patient stated that she had no pain. Medications and recommendations were explained thoroughly to the patient and she was discharged home. Personal history: Anxiety Allergies: Morphine Surgical history: Denies Social: Denies drug, tobacco, and alcohol use. States she currently lives with her sister and feels safe. Review of Systems: Constitutional: Denies weight loss, fever and chills. HEENT: Denies changes in vision and hearing. Respiratory: Denies shortness of breath and cough Cardiovascular: Denies chest discomfort or palpitations GI: Mild abdominal pain and constipation, Denies abdominal distention, diarrhea : Denies dysuria and urinary frequency. Musculoskeletal: Refers localized back pain Skin: Denies rash and pruritus. Neurological: denies dizziness headache vision or hearing problems General: The patient alert and oriented in person place and time. Patient following commands HEENT: Normocephalic, atraumatic, normal reactive pupils, anicteric, pink conjunctiva, pink moist mucous membrane Respiratory/pulmonary: Clear lungs bilaterally, vesicular murmurs present in almost all lung hills, no associated crackles or wheezes. Abdomen: Abdomen nondistended, normal bowel sounds, soft, there is no pain to palpation in any of the abdominal quadrants, Yepez negative, no palpable masses. Cardiovascular: Normal RRR, Normal S1 and S2 Extremities: no deformities, there is no peripheral edema present at the lower extremities, pulses are palpable Skin: No rashes or pruritus, there is no sacral edema present at this time. Neurological: Intact cranial nerves with no focal neurologic deficits Operations or Procedures 1.PROCEDURE(s): ABPL - CT AB PEL WO CON-NO ORAL OR IV REASON: Epigastric pain ORDER NUMBER(s): [id number], ACCESSION NUMBER(s): [id number] Exam: CT CT AB PEL WO CON-NO ORAL OR IV History: Epigastric pain Comparison Study: None TECHNIQUE: Multidetector CT of the abdomen was performed from lung bases to pubic symphysis. Imaging was performed without IV contrast. Axial, coronal and sagittal multiplanar reformats were obtained from the axial data set by the technologist. Radiation Dose Information: CT Dose: CTDI volume is 6.76 mGy. Dose-length product is 347.03 mGy*cm FINDINGS: Evaluation of solid organs is limited due to lack of intravenous contrast use. Findings: Lung Bases: No acute or significant lung base finding. Normal heart size. No pleural or pericardial effusion. Liver: The liver is normal in size. No focal lesions. Gallbladder and Biliary Tree: Unremarkable Spleen: Unremarkable Pancreas: The pancreas is grossly normal in appearance. Adrenal Glands: Unremarkable Kidneys: Kidneys are grossly normal without calculi or hydronephrosis. Bladder: Grossly unremarkable for degree of distention. Bowel: The stomach is grossly normal in appearance. Small bowel and colon are normal in caliber and distribution. The appendix is not visualized; however, no secondary findings of acute appendicitis identified. Ascites: Absent Lymphadenopathy: No mesenteric, retroperitoneal or periportal lymphadenopathy. Abdominal Wall and Mesentery: 2.2 cm fat containing umbilical hernia. Vasculature: The visualized abdominal aorta is normal in size and caliber. Evaluation of abdominal and pelvic vessels is limited due to lack of intravenous contrast. Pelvic Organs: Unremarkable Musculoskeletal: No aggressive focal bony lesions, acute fractures or dislocation. Soft tissues: Unremarkable IMPRESSION: 1. No calcified gallstones 2. No free air or free fluid. 3. No CT findings to suggest bowel obstruction. Moderate degree of stool burden throughout the colon. 4. 2.2 cm fat containing umbilical hernia. 5. No nephrolithiasis or hydronephrosis 6. Radiation optimization: All CT scans at this facility use at least one of these dose optimization techniques: automated exposure control mA and/or kV adjustment per patient size (includes targeted exams where dose is matched to clinical indication) or iterative reconstruction. 2.PROCEDURE(s): ABDL - ABDOMEN LIMITED REASON: Epigastric pain ORDER NUMBER(s): [id number], ACCESSION NUMBER(s): [id number] CLINICAL HISTORY: Epigastric pain TECHNIQUE: Transabdominal sonogram was performed of the right upper quadrant. COMPARISON: None FINDINGS: The liver is increased in echogenicity. There is no focal parenchymal abnormality. No intrahepatic biliary ductal dilatation is present. The liver measures 17.1 cm. The gallbladder contains trace sludge with no evidence for stones or wall thickening. The common bile duct is normal in caliber, measuring 5.8 mm. The visualized pancreas is grossly unremarkable. The right kidney is normal in echogenicity and measures 10.3 cm in length. There is no evidence for hydronephrosis or calculi. IMPRESSION: DIFFUSE HEPATIC STEATOSIS 3.PROCEDURE(s): CXR1 - CHEST XRAY 1 VIEW REASON: Tachypnea and tachycardia ORDER NUMBER(s): [id number], ACCESSION NUMBER(s): [id number] CHEST RADIOGRAPH Indication: Tachypnea and tachycardia Technique: Single frontal view of the chest was obtained Comparison: None FINDINGS: Lines and Tubes: None Lungs: No focal consolidation. Pleura: No effusion. No pneumothorax. Cardiomediastinal contours: Unremarkable Bones: No acute osseous abnormality. IMPRESSION: No acute cardiopulmonary disease. 4.PROCEDURE(s): MRCP - MRCP MRI REASON: Abdominal pain ORDER NUMBER(s): [id number], ACCESSION NUMBER(s): [id number] PROCEDURE: MRI MRCP MRI Indication: Abdominal pain COMPARISON: 03/08/2025 TECHNIQUE: Multiplanar multisequence images of the brain are obtained. FINDINGS: Tiny bilateral pleural effusions. Adrenal glands, spleen, pancreas unremarkable. CBD measures 4 mm. No intrahepatic duct dilatation. Possible 2 mm calculus in the mid to distal CBD. Coronal T2 sequence image 17 of 35. There is no evidence for gallstones in the gallbladder. No hydronephrosis. Right hepatic lobe cyst measuring 9 mm. Stomach is partially distended. IMPRESSION: Possible calculus in the mid to distal CBD measuring 2 mm. Common bile duct diameter within normal limits. Recommend GI consultation for further evaluation. 5.PROCEDURE(s): MRCP - MRCP MRI REASON: Follow up on CBD stone ORDER NUMBER(s): [id number], ACCESSION NUMBER(s): [id number] MRI MRCP MRI Attending Name: HAY MERCADO COMPARISON: MRI MRCP MRI on DOS: 03/10/25 INDICATION: Follow up on CBD stone TECHNIQUE: MRCP was performed without the use of intravenous contrast using a MRI imaging system. Three-dimensional MRCP was performed using maximum intensity projection reconstruction on an independent workstation under concurrent supervision. FINDINGS: Visualized lower thorax: Limited imaging of the thorax demonstrates no suspicious pleural or parenchymal disease. Liver: Normal in morphology and signal intensity. Gallbladder: No evidence of cholelithiasis or gallbladder wall thickening. Biliary system: There is no intrahepatic or extrahepatic bile duct dilatation. No filling defect to suggest choledocholithiasis. Spleen: Normal in morphology and signal intensity. Pancreas: Normal in morphology and signal intensity. No dilatation of the pancreatic Adrenal glands: Normal in morphology and signal intensity. Kidneys: The kidneys are symmetric in size and appearance. No hydronephrosis. Urinary tract: The included ureters, as visualized, are normal in course and caliber. Small right renal cyst. GI tract: The included portions of the bowel are within normal limits. Lymph nodes: No enlarged lymph nodes. Peritoneum: No ascites. Musculoskeletal: The bone marrow signal intensity is within normal limits. IMPRESSION: 1. No intra or extra hepatic biliary ductal dilatation. No MRI evidence of choledocholithiasis. Condition at Discharge: Stable Final Diagnosis/Problems List Intractable abdominal pain, possibly due Biliary colic Choledocholithiasis Transaminitis, likely due to above Dehydration Pancreatitis, ruled out Hepatic Steatosis Constipation Anxiety Umbilical hernia Discharge Disposition: Home SNF Discharge Will this Physician continue t: No Discharge Instruct/Medications Diet: Regular Scheduled Sertraline Hcl (Sertraline Hcl), 50 TAB PO DAILY, (Reported) Discharge Statement: "Patient was advised to return to the ER or call 911 if any headaches, dizziness, shortness of breath, chest pain, abdominal pain, bleeding, fevers, or worsening of medical condition. Patient was counseled about treatment plan, medications, possible side effects, patientverbalized understanding. All questions were answered to the best of my ability. This discharge took greater then 30 minutes in planning, reviewing documentation, counseling the patient, and discussing with other team members." ASSESSMENT ASSESSMENT Hospital Course Patient is a 59-year-old female with prior medical history of anxiety, who presented to the ED with chief complaint of abdominal pain. The patient stated that she had sudden onset of epigastric pain, described as sharp, 10/10 in intensity, radiating towards her back, associated with vomiting, nausea, and chills. She denied fever, diarrhea, bloody vomitus, diaphoresis, chest pain, recent sick contacts, and palpitations. due to persistence of symptoms she sought medical attention. The patient stated that she has had issues with abdominal pain for the last year, and was recently seen at [facility] where she was told there was nothing wrong. On evaluation in the ED, patient was in mild distress and hypertensive. Initial labs unremarkable CBC, chemical panel significant liver function tests, Lipase 73 , UA is unremarkable, hepatitis panel is negative, and UDS is negative. Abdominal CT showed noncalcified gallstones, no free air or free fluid, no findings suggestive of a bowel obstruction, moderate degree of stool burden throughout the colon, 2.2 cm fat containing umbilical hernia, no nephrolithiasis or hydronephrosis. Upper quadrant ultrasound is significant for gallbladder with trace sludge with no evidence for stones or wall thickening and diffuse hepatic steatosis. Patient was initially recommended to be transferred to higher level of care for ERCP. Her signs and symptoms gradually resolved during her hospital stay and her labs started improving. Repeat MRCP done on 03/12/2025 revealed no stones in the CBD and she was cleared for discharge by surgery. On evaluation patient stated that she had no pain. Medications and recommendations were explained thoroughly to the patient and she was discharged home. Assessment Intractable abdominal pain, possibly due Biliary colic Choledocholithiasis Transaminitis, likely due to above Dehydration Pancreatitis, ruled out Hepatic Steatosis Constipation Anxiety Umbilical hernia Date of Service: Mar 12, 2025 Billing Provider: BRUCE JEFF MD Common Visit Codes: 01055-JTP/OBS DISCH DAY >30min AMEYA WINSTON RESIDENT Mar 12, 2025 16:59 BRUCE JEFF MD Mar 15, 2025 10:38
== END 2025-03-12 20:17 | disposition home or self-care (01) ==
LOC: ER 17:04 → OVERFLOW 03-09 01:16 → WEST WING 03-09 22:35
PROVIDERS: ADMIT Internal Medicine Geriatric Medicine; ATTEND Emergency Medicine
DX: K80.50 Calculus of bile duct without cholangitis or cholecystitis without obstruction (principal); K76.0 Fatty (change of) liver, not elsewhere classified; E86.0 Dehydration; J45.909 Unspecified asthma, uncomplicated; F32.A Depression, unspecified; K42.9 Umbilical hernia without obstruction or gangrene; K59.00 Constipation, unspecified; F41.9 Anxiety disorder, unspecified; Z82.49 Family history of ischemic heart disease and other diseases of the circulatory system; Z79.899 Other long term (current) drug therapy; Z88.5 Allergy status to narcotic agent
CPT/HCPCS: 36415; 71045; 74176; 74181; 76705; 80048; 80053; 80061; 80074; 80076; 80307; 81001; 83036; 83690; 83735; 83880; 84443; 84484; 85025; 93005; 96361; 96374; G0378; J1885; J2003; J2470; J2543